=== PATIENT | female | born 1955 | race Caucasian/White ===

== ENCOUNTER 2020-04-06 08:18 | Outpatient (CLI) | payer OTHER, SELFPAY ==
--- NOTE | ~2020-04-06 | XR_ITS ---
EXAMINATION: XR chest 2V DATE: 04/06/2020 08:37 INDICATION: Cough. Shortness of breath. TECHNIQUE: Frontal and lateral views of the chest were obtained. COMPARISON: None. FINDINGS: The lungs are hyperexpanded with lucencies, consistent with emphysema. There is mild scarri ng at the lung apices. No pleural effusion or pneumothorax. The heart size is normal. IMPRESSION: 1. Emphysema. 2. Mild scarring at the lung apices. Reviewed, dictated and finalized at location B.
== END 2020-04-06 08:19 | disposition home or self-care (01) ==
PROVIDERS: PCP Family Medicine; Visit Provider Family Medicine
DX: R05 Cough (principal); F17.209 Nicotine dependence, unspecified, with unspecified nicotine-induced disorders; J43.9 Emphysema, unspecified; R91.8 Other nonspecific abnormal finding of lung field
CPT/HCPCS: 71046

== ENCOUNTER 2021-05-29 14:19 | Outpatient (CLI) | payer OTHER, SELFPAY ==
--- NOTE | ~2021-05-29 | MM_ITS ---
EXAMINATION: MM screening carla BI w jama HISTORY: Screening mammogram TECHNIQUE: Craniocaudal and mediolateral oblique 3-D tomosynthesis images were obtained and synthetic 2-D images were generated. CAD analysis was submitted and interpreted. COMPARISON: 07/03/2014, 05/20/2013 BREAST PARENCHYMAL COMPOSITION: There are scattered areas of fibroglandular density. FINDINGS: There has been interval decrease in size of the implant cavities with development of dystro phic calcifications. There is no evidence of suspicious mass, calcification, or architectural distort ion to suggest malignancy in either breast. There has been no suspicious interval change. IMPRESSION: 1. No mammographic evidence of malignancy. 2. Recommend routine screening mammography in one year. BI-RADS Category 2: Benign finding(s). Reviewed, dictated and finalized at location A.
== END 2021-05-29 14:20 | disposition home or self-care (01) ==
PROVIDERS: PCP Family Medicine; Visit Provider Family Medicine
DX: Z12.31 Encounter for screening mammogram for malignant neoplasm of breast (principal)
CPT/HCPCS: 77063; 77067

== ENCOUNTER 2021-05-31 09:26 | Outpatient (CLI) | payer OTHER, SELFPAY ==
--- NOTE | 2021-05-31 09:30 | EST_ITS ---
Patient Info Name: Betty Pelaez Age: 65 years : 1955 Gender: Female Ht: 64 in Wt: 128 lbs BSA: 1.62 m2 HR: 79 bpm BP: 172 / 96 mmHg Heart Rhythm: Sinus Rhythm Exam Date: 05/31/2021 9:44 AM Exam Location: [facility] Stress Patient Status: Outpatient Admit Date: 05/31/2021 Staff Ordering Physician: Pete Stallworth MD Attending Provider: Pete Stallworth MD Exercise Technologist: Anju Rodgers CT Exercise Physician: Ender Guerra DO Exam Type: CA stress test treadmill Study Info Indications R06.02 - Shortness of breath An exercise stress test was performed. Summary 1. 1. Negative Jaspreet exercise stress test for ischemic ST changes by ECG criteria. 2. 2. Poor functional capacity, achieving 4 METs of workload. 3. 3. Baseline hypertension with hypertensive response to exercise. 4. 4. Rapid HR response to exercise. 5. 5. Appropriate HR recovery at 1 minute post exercise. 6. 6. No imaging with stress testing. 7. 7. Patient informed of the above results. Protocol: Jaspreet Stress ECG Details Stage: REST Duration (min): 3 min : 34 sec Speed (mph): 0.0 Grade (%): 0 HR (bpm): 79 SBP (mmHg): 172 DBP (mmHg): 96 METS: --- Stage: REST Duration (min): 9 min : 14 sec Speed (mph): 0.0 Grade (%): 0 HR (bpm): 87 SBP (mmHg): 172 DBP (mmHg): 96 METS: --- Stage: STAGE 1 Duration (min): 1 min : 0 sec Speed (mph): 1.7 Grade (%): 10 HR (bpm): 117 SBP (mmHg): 172 DBP (mmHg): 96 METS: --- Stage: STAGE 1 Duration (min): 2 min : 0 sec Speed (mph): 1.7 Grade (%): 10 HR (bpm): 144 SBP (mmHg): 172 DBP (mmHg): 96 METS: --- Stage: STAGE 1 Duration (min): 3 min : 0 sec Speed (mph): 1.7 Grade (%): 10 HR (bpm): 149 SBP (mmHg): 229 DBP (mmHg): 117 METS: --- Stage: RECOVERY Duration (min): 0 min : 59 sec Speed (mph): 0.0 Grade (%): 0 HR (bpm): 117 SBP (mmHg): 229 DBP (mmHg): 117 METS: --- Stage: RECOVERY Duration (min): 1 min : 59 sec Speed (mph): 0.0 Grade (%): 0 HR (bpm): 107 SBP (mmHg): 229 DBP (mmHg): 117 METS: --- Stage: RECOVERY Duration (min): 2 min : 48 sec Speed (mph): 0.0 Grade (%): 0 HR (bpm): 88 SBP (mmHg): 210 DBP (mmHg): 95 METS: --- Rest HR: 87 bpm Peak HR: 152 bpm Rest Sys BP: 172 mmHg Peak Sys BP: 229 mmHg Max Pred HR: 157 bpm % Max Pred HR: 97 % Target HR: 133 bpm Max RPP: 34,808 bpm*mmHg Ordoñez Score: -5 Termination Reason: Reached target heart rate or workload Cardiac Symptoms: Shortness of breath Max ST Seg Deviation: -1.70 mm Total Time: 3 min : 0 sec Rest Cano BP: 96 mmHg Peak Cano BP: 117 mmHg Angina Score: None Total METS: 4.7 Resting ECG Sinus rhythm. Stress ECG No ST changes. Arrhythmias PVC's at peak exercise. No arrhythmias. Report Signatures
--- NOTE | 2021-06-03 13:29 | P.PCNPFT_ITS ---
PFT Procedure Performed PFT Procedure Performed Spirometry with Pre/Post Bronchodilator Plethysmography (Lung Vol) Diffusing Cap (DLCO) Flow Vol Loop PFT Interpretation Lung volumes were measured with the body plethysmography method. The elevated RV may indicate air trapping. The remaining lung volumes are remarkable. S pirometry showed diminished expiratory flow rates and a diminished FEV1 to FVC ratio of 50%, indicative of obstructive airway disease. Following administration of a bronchodilator, there was no significant increase in the expiratory flow rates. Lung diffusion capacity is moderately reduced at 64% predicted. The flow volume loop is consistent with obstructive airway disease. Impression: Moderate obstructive airway disease with no response to bronchodilator of this testing. Moderately reduced lung diffusion capacity.
== END 2021-05-31 09:27 | disposition home or self-care (01) ==
PROVIDERS: PCP Family Medicine; Visit Provider Family Medicine
DX: R07.89 Other chest pain (principal); J43.9 Emphysema, unspecified; R94.2 Abnormal results of pulmonary function studies
CPT/HCPCS: 93017; 94060; 94726; 94729

== ENCOUNTER 2021-07-29 10:52 | Outpatient (CLI) | payer OTHER, SELFPAY ==
--- NOTE | ~2021-07-29 | CT_ITS ---
EXAMINATION: CT lung screening DATE: 07/29/2021 11:32 INDICATION: Z87.891 - Personal history of nicotine dependence TECHNIQUE: Computed tomography (CT) of the chest was performed without intravenous contrast. Addition al 3D reconstructions utilizing coronal maximum intensity projection (MIP) were performed. Automated exposure control and iterative reconstruction technique were employed. The dose-length product was 56 .66 mGy-cm. COMPARISON: None FINDINGS: Mild emphysema. Mild posterior biapical pleural-parenchymal scarring. Additional small linear band of discoid atelectasis/scarring at the anterior right middle lobe. No suspicious pulmonary nodules, pne umonia, pulmonary edema or pleural effusion. Heart size is normal. Atherosclerotic coronary artery ca lcific lesions. No pericardial effusion. Thoracic aorta is normal in caliber. No pathologically enlar ged thoracic lymphadenopathy. Small seromas and bilateral breast implants apices with peripheral dyst rophic capsular calcification on the right. 1.5 cm high attenuation left renal proteinaceous/hemorrha gic cyst. Thoracic kyphosis, mild dextrocurvature and mild spondylosis. IMPRESSION: 1. Lung-RADS category 1: Negative. Continue annual screening with noncontrast low-dose chest CT in 12 months. Reviewed, dictated and finalized at location B. T POURER IMPRESSION: 1. Lung-RADS category 1: Negative. Continue annual screening with noncontrast l ow-dose chest CT in 12 months.
== END 2021-07-29 10:53 | disposition home or self-care (01) ==
LOC: ANHIMG 11:04
PROVIDERS: PCP Family Medicine; Visit Provider Nurse Practitioner Family
DX: Z87.891 Personal history of nicotine dependence (principal)
CPT/HCPCS: 71271

== ENCOUNTER → 2021-09-07 00:42 | Outpatient (CLI) | payer OTHER, SELFPAY ==
[2021-09-08 15:56] LABS: SARS-CoV-2 RNA PCR Negative
== END ==
PROVIDERS: PCP Family Medicine; Visit Provider Family Medicine
DX: J01.00 Acute maxillary sinusitis, unspecified (principal); Z20.822 Contact with and (suspected) exposure to COVID-19
CPT/HCPCS: C9803; U0003; U0005

== ENCOUNTER → 2022-04-30 15:07 | Outpatient (CLI) | payer OTHER, SELFPAY ==
--- NOTE | ~2022-04-30 | XR_ITS ---
XR hip LT min 2V DATE: 04/30/2022 15:26 INDICATION: Hip pain TECHNIQUE: AP and lateral views COMPARISON: None FINDINGS: The pubic symphysis and left sacroiliac joint are intact. No fracture, dislocation, avascular necrosis or bone destruction of the right hip. Right hip joint sp meaghan is well preserved. IMPRESSION: No significant abnormality Reviewed, dictated and finalized at location A. IMPRESSION: No significant abnormality
--- NOTE | ~2022-04-30 | XR_ITS ---
XR hip RT min 2V DATE: 04/30/2022 15:25 INDICATION: Right hip pain TECHNIQUE: AP and lateral views COMPARISON: None FINDINGS: No fracture or dislocation, avascular necrosis or bone destruction of the right hip. Right hip joint space is well preserved. The pubic symphysis and right sacroiliac joint are intact. IMPRESSION: Negative right hip Reviewed, dictated and finalized at location A. IMPRESSION: Negative right hip
--- NOTE | ~2022-04-30 | XR_ITS ---
XR lumbar spine min 4V DATE: 04/30/2022 15:26 INDICATION: Low back pain, right sciatica TECHNIQUE: AP, lateral, bilateral oblique views, coned lateral lumbosacral view COMPARISON: None FINDINGS: There is rotatory levoscoliosis of the lumbar spine. Diffuse osteopenia. There is suggestion of a transitional lumbosacral vertebra. No fracture or bone destruction, spondylolysis or spondylolisthesis is noted. Lumbar interspaces appear relatively preserved. The sacroiliac joints are intact. Extensive aortic and bilateral common iliac artery calcification; no evidence of abdominal aortic ane urysm IMPRESSION: Moderate rotatory levoscoliosis Osteopenia Suggestion of a transitional lumbosacral vertebra Reviewed, dictated and finalized at location A.
== END ==
PROVIDERS: PCP Family Medicine; Visit Provider Family Medicine
DX: G89.29 Other chronic pain (principal); M54.41 Lumbago with sciatica, right side; M54.42 Lumbago with sciatica, left side; M25.551 Pain in right hip; M25.552 Pain in left hip; M85.88 Other specified disorders of bone density and structure, other site
CPT/HCPCS: 72110; 73502

== ENCOUNTER 2022-05-16 13:56 | Outpatient (CLI) | payer OTHER, SELFPAY ==
--- NOTE | ~2022-05-16 | US_ITS ---
US art doppler w press LE BI INDICATION: Peripheral vascular disease TECHNIQUE: Segmental pressures and plethysmographic and Doppler waveforms of the brachial and lower e xtremity arteries were obtained. COMPARISON: No prior studies for comparison. . FINDINGS: Right and left brachial artery pressures of 139 mm Hg and 139 mm Hg, respectively, are concordant (no rmal difference <= 30 mmHg). The right ankle-brachial index (REBEKAH) is 1.09 (normal >= 0.9-1.0). The right great toe-brachial index (TBI) is 0.55 (normal >= 0.60). The left REBEKAH is 1.22. The left TBI is 0.29. IMPRESSION: 1. Diminished bilateral toe brachial indices, left greater than right, consistent with peripheral art erial disease. Reviewed, dictated and finalized at location A. IMPRESSION: 1. Diminished bilateral toe brachial indices, left greater than right, consiste nt with peripheral arterial disease.
== END 2022-05-16 13:57 | disposition home or self-care (01) ==
LOC: ANHIMG 13:57
PROVIDERS: PCP Family Medicine; Visit Provider Family Medicine
DX: I73.9 Peripheral vascular disease, unspecified (principal)
CPT/HCPCS: 93923

== ENCOUNTER 2022-06-13 14:26 | Emergency (ER) | payer OTHER, SELFPAY ==
--- NOTE | ~2022-06-13 | XR_ITS ---
EXAMINATION: XR finger 2nd RT min 2V INDICATION: Right second finger pain TECHNIQUE: Four views of the right second finger are obtained. COMPARISON: None available FINDINGS: There appears to be dorsal soft tissue laceration overlying the proximal phalanx of the sec ond finger. No acute fracture is identified. There appears to be an old fracture of the second distal phalanx. Mild osteoarthritis is noted in multiple interphalangeal joints. IMPRESSION: 1. Soft tissue laceration of the second finger without acute osseous abnormality. Reviewed, dictated and finalized at location B. IMPRESSION: 1. Soft tissue laceration of the second finger without acute osseous abnormalit y.
--- NOTE | 2022-06-13 14:33 | ED.UPPEXIN ---
HPI - Extremity Injury (Upper) General Chief Complaint: Extremity Injury, Upper Stated Complaint: INJURED FINGER Time Seen by Provider: 06/13/22 14:33 Source: patient Mode of arrival: ambulatory Limitations: no limitations History of Present Illness HPI narrative: Ms Robertson is a 66-year-old female patient presenting to clinic today with complaints of right-second finger pain/injury that occurred approximately 1 hour. She reports she was taking the dog out on the leash and the dog pulled and her finger smacked into the door. Related Data Home Medications Medication Instructions Recorded Confirmed vitamin B12 500 mcg-folic acid 400 1 tablet PO DAILY 06/28/19 06/13/22 mcg tablet adalimumab 40 mg/0.4 mL See Rx Instructions subcut .COMPLEX 07/07/19 06/13/22 subcutaneous syringe kit (Asmita(CF)) esomeprazole magnesium 20 mg 20 mg PO DAILY 04/05/20 06/13/22 capsule,delayed release (Nexium 24HR) ferrous sulfate 325 mg (65 mg 325 mg PO . twice weekly 04/30/22 06/13/22 iron) tablet fexofenadine-pseudoephedrine ER 1 tablet PO DAILY PRN allergy 04/30/22 06/13/22 180 mg-240 mg tablet,ext.release symptoms 24 hr (Liza-D 24 Hour) fluticasone fur. 100 mcg-umeclid 62.5 inh inhalation DIRECTED 06/13/22 06/13/22 62.5 mcg-vilant 25 mcg inhalat.powder (Trelegy Ellipta) peg-electrolyte solution 420 gram 420 ml DIRECTED 06/13/22 06/13/22 oral solution Allergies Allergy/AdvReac Type Severity Reaction Status Date / Time ciprofloxacin Allergy Unknown Joint pain Verified 06/13/22 14:36 Penicillins Allergy Unknown Rash Verified 06/13/22 14:36 Review of Systems Review of Systems: Pertinent positives per HPI. Patient denies any fever, chills, rash, headache, visual changes, dizziness, cough, runny nose, sore throat, shortness of breath, chest pain, palpitations, nausea, vomiting, diarrhea, constipation, abdominal pain, or any urinary issues. PMFSH Past Medical History Medical History Acute bronchitis Acute non-recurrent maxillary sinusitis Atypical chest pain Exercise stress test on 05/31/2021 negative for ischemia with poor exercise tolerance BMI 21.0-21.9, adult BMI 23.0-23.9, adult Breast cancer screening by mammogram normal mammogram 05/29/2021 Chronic hip pain, bilateral X-rays of the hips on 04/30/2022 were unremarkable. Chronic low back pain with bilateral sciatica x-ray of the lumbar spine on 04/30/2022 reveals levoscoliosis but otherwise unremarkable. Colon cancer screening (05/08/22) Cologuard screening on 05/08/2022 was positive. The patient needs colonoscopy 05/14/2022. Cough present for greater than 3 weeks Emphysema/COPD moderate COPD with no improvement with bronchodilator on PFT on 05/31/2021 Encounter for screening for other viral diseases Encounter for screening for other viral diseases Encounter for wellness examination in adult Exposure to COVID-19 virus Grieving daughter July, Iron deficiency anemia, unspecified level low at 22 on 11/09/2015. Iron normal at 89 with 24% saturation with ferritin low at 12 on 10/25/2021 Kyphosis Left axillary artery thrombus Medial epicondylitis, left elbow Mixed hyperlipidemia total cholesterol 243, HDL 59, triglycerides 74, LDL 154 on 10/25/2021 Peripheral vascular disease (~05/11/22) extensive calcification of the aorta and iliac arteries on x-ray of the lumbar spine and hips 04/30/2022. Arterial Doppler study of the lower extremities revealed decreased TBI bilaterally worse on the left with value of 0.55 on the right and 0.29 on the left. Positive colorectal cancer screening using Cologuard test Rash Severe itching Tobacco use disorder, continuous quit smoking 03/24/2020 Urticaria (~01/2022) Family History Family History Mother Patient's mother is , Onset Age: 76 Father Dec
[2022-06-13 14:44] VITALS: BP 166/76; PULSE 89; RESP 16; TEMP 37.1; O2SAT 98
== END 2022-06-13 15:00 | disposition home or self-care (01) ==
PROVIDERS: Emergency Provider Nurse Practitioner Family; PCP Family Medicine
DX: S61.210A Laceration without foreign body of right index finger without damage to nail, initial encounter (principal); S63.610A Unspecified sprain of right index finger, initial encounter; S60.021A Contusion of right index finger without damage to nail, initial encounter; W22.8XXA Striking against or struck by other objects, initial encounter; Z87.891 Personal history of nicotine dependence; J44.9 Chronic obstructive pulmonary disease, unspecified; D64.9 Anemia, unspecified; E78.2 Mixed hyperlipidemia; I73.9 Peripheral vascular disease, unspecified
CPT/HCPCS: 29130; 73140; 99213; G0463

== ENCOUNTER 2022-06-26 01:01 | Day surgery (SDC) | payer OTHER, SELFPAY ==
[2022-06-18 15:00] VITALS: BMI 22.2
[2022-06-26 07:55] VITALS: BP 144/63; PULSE 92; RESP 16; TEMP 36.3; O2SAT 99
[2022-06-26] MEDS: LACTATED RINGERS 1,000 ML 150 ML IV CONT (08:02)
--- NOTE | 2022-06-26 08:05 | PM.HPGS ---
History of Present Illness History of Present Illness Consent: Risks, benefits, and alternatives have been discussed and questions answered. Patient agrees to proceed with procedure. Chief complaint: positive cologuard Narrative: Betty Robertson is a 66 year old female presents for colonoscopy. Patient recently found to have positive screening Cologuard test. Patient reports that her current weight appetite and bowel movements are normal. Patient denies abdominal pain. She has had no bleeding. Family history noncontributory. Previous colonoscopy 10 years ago was unremarkable. Review of Systems Review of Systems: Review of systems noncontributory. [facility] Past Medical History Medical History Acute bronchitis Acute non-recurrent maxillary sinusitis Atypical chest pain Exercise stress test on 05/31/2021 negative for ischemia with poor exercise tolerance BMI 21.0-21.9, adult BMI 23.0-23.9, adult Breast cancer screening by mammogram normal mammogram 05/29/2021 Chronic hip pain, bilateral X-rays of the hips on 04/30/2022 were unremarkable. Chronic low back pain with bilateral sciatica x-ray of the lumbar spine on 04/30/2022 reveals levoscoliosis but otherwise unremarkable. Colon cancer screening (05/08/22) Cologuard screening on 05/08/2022 was positive. The patient needs colonoscopy 05/14/2022. Cough present for greater than 3 weeks Emphysema/COPD moderate COPD with no improvement with bronchodilator on PFT on 05/31/2021 Encounter for screening for other viral diseases Encounter for screening for other viral diseases Encounter for wellness examination in adult Exposure to COVID-19 virus Grieving daughter July, Iron deficiency anemia, unspecified level low at 22 on 11/09/2015. Iron normal at 89 with 24% saturation with ferritin low at 12 on 10/25/2021 Kyphosis Left axillary artery thrombus Medial epicondylitis, left elbow Mixed hyperlipidemia total cholesterol 243, HDL 59, triglycerides 74, LDL 154 on 10/25/2021 Peripheral vascular disease (~05/11/22) extensive calcification of the aorta and iliac arteries on x-ray of the lumbar spine and hips 04/30/2022. Arterial Doppler study of the lower extremities revealed decreased TBI bilaterally worse on the left with value of 0.55 on the right and 0.29 on the left. Positive colorectal cancer screening using Cologuard test Rash Severe itching Tobacco use disorder, continuous quit smoking 03/24/2020 Urticaria (~01/2022) Family History Family History Mother Patient's mother is , Onset Age: 76 Father Patient's father is , Onset Age: 71 Grandparent Cerebrovascular accident, Onset Age: 74 Social History Social History Smoking packs per day: 1 Smoking cigarettes per day: 20.0 Years smoked: 45 Smoking pack-years: 45.00 Smoking status: Former smoker Tobacco type: cigarettes Smoking end date: 05/24/20 Alcohol intake: current Drinks per week: 1 Substance use type: does not use Living arrangements: with family Spiritual care concerns: No Meds Home Medications and Allergies Home Medications Medication Instructions Recorded Confirmed Type vitamin B12 500 mcg-folic acid 400 1 tablet PO DAILY 06/28/19 06/26/22 History mcg tablet adalimumab 40 mg/0.4 mL See Rx Instructions subcut .COMPLEX 07/07/19 06/26/22 History subcutaneous syringe kit (Humira(CF)) albuterol sulfate 90 mcg/actuation 2 puff inhalation Q4H PRN 04/05/20 06/26/22 Rx aerosol inhaler (ProAir HFA) shortness of breath or wheezing #18 grams esomeprazole magnesium 20 mg 20 mg PO DAILY 04/05/20 06/26/22 History capsule,delayed release (Nexium 24HR) ibuprofen 800 mg tablet 800 mg PO TID PRN pain #90 tabs 11/22
[2022-06-26 09:48] VITALS: BP 114/66; PULSE 86; RESP 20; O2SAT 98
[2022-06-26 09:58] VITALS: BP 120/74; PULSE 84; RESP 22; O2SAT 100
[2022-06-26 10:08] VITALS: BP 135/86; PULSE 77; RESP 18; O2SAT 100
== END 2022-06-26 10:14 | disposition home or self-care (01) ==
PROVIDERS: PCP Family Medicine; Visit Provider Internal Medicine Gastroenterology
PROC: 0DJD8ZZ Inspection of Lower Intestinal Tract, Via Natural or Artificial Opening Endoscopic (ICD-10-PCS; CPT 45378; principal; 2022-06-26 09:15)
DX: R19.5 Other fecal abnormalities (principal); E78.5 Hyperlipidemia, unspecified; Z87.891 Personal history of nicotine dependence
CPT/HCPCS: 45378; J2704; J7120

== ENCOUNTER 2022-07-21 16:13 | Emergency (ER) | payer OTHER, SELFPAY ==
[2022-07-21 16:24] VITALS: BP 161/66; PULSE 90; RESP 21; TEMP 35.8; O2SAT 99
--- NOTE | 2022-07-21 16:37 | ED.GENADULT ---
HPI - General Adult General Chief complaint: Extremity Injury, Lower Stated complaint: FALL/GROIN PAIN Time Seen by Provider: 07/21/22 16:25 Source: patient and RN notes reviewed History of Present Illness HPI narrative: Patient is a 66-year-old female who presents to urgent care with complaints of left groin pain. Patient states that she was walking her dog yesterday and rain boots and he tugged going after a squirrel causing her leg to slide out from underneath her. Patient states that she works at [employer] and has been on her feet all day and is now having increased pain. Patient states that she has been taking ibuprofen. No other acute complaints or injuries from the fall. No acute distress noted. Patient aware of the plan of care. Some parts of this dictation were generated by voice recognition software and may contain typographical and/or grammatical inaccuracies. Related Data Home Medications Medication Instructions Recorded Confirmed vitamin B12 500 mcg-folic acid 400 1 tablet PO DAILY 06/28/19 07/21/22 mcg tablet adalimumab 40 mg/0.4 mL See Rx Instructions subcut .COMPLEX 07/07/19 07/21/22 subcutaneous syringe kit (Rollyira(CF)) esomeprazole magnesium 20 mg 20 mg PO DAILY 04/05/20 07/21/22 capsule,delayed release (Nexium 24HR) ferrous sulfate 325 mg (65 mg 325 mg PO . twice weekly 04/30/22 07/21/22 iron) tablet fexofenadine-pseudoephedrine ER 1 tablet PO DAILY PRN allergy 04/30/22 07/21/22 180 mg-240 mg tablet,ext.release symptoms 24 hr (Liza-D 24 Hour) fluticasone fur. 100 mcg-umeclid 62.5 inh inhalation DIRECTED 06/13/22 07/21/22 62.5 mcg-vilant 25 mcg inhalat.powder (Trelegy Ellipta) peg-electrolyte solution 420 gram 420 ml DIRECTED 06/13/22 07/21/22 oral solution Allergies Allergy/AdvReac Type Severity Reaction Status Date / Time ciprofloxacin Allergy Unknown Joint pain Verified 07/21/22 16:18 Penicillins Allergy Unknown Rash Verified 07/21/22 16:18 Review of Systems Review of Systems: CONSTITUTIONAL: Denies fever, chills, or sweats. EYES: Denies visual changes, redness, or discharge. ENT: Denies rhinorrhea, congestion, sore throat, or otalgia. CARDIOVASCULAR: Denies chest pain, palpitations, or edema. RESPIRATORY: Denies cough or dyspnea. GASTROINTESTINAL: Denies abdominal pain, nausea, vomiting, or diarrhea. GENITOURINARY: Denies dysuria or hematuria. SKIN: Denies rash or itching. MUSCULOSKELETAL: Reports of left groin pain NEUROLOGIC: Denies headache, numbness, or weakness. All other systems reviewed are negative, except as documented in HPI. [facility] Past Medical History Medical History (Updated 07/21/22 @ 16:48 by COREY Mccray) Acute bronchitis Acute non-recurrent maxillary sinusitis Atypical chest pain Exercise stress test on 05/31/2021 negative for ischemia with poor exercise tolerance BMI 21.0-21.9, adult BMI 23.0-23.9, adult Breast cancer screening by mammogram normal mammogram 05/29/2021 Chronic hip pain, bilateral X-rays of the hips on 04/30/2022 were unremarkable. Chronic low back pain with bilateral sciatica x-ray of the lumbar spine on 04/30/2022 reveals levoscoliosis but otherwise unremarkable. Colon cancer screening (05/08/22) Cologuard screening on 05/08/2022 was positive. The patient needs colonoscopy 05/14/2022. colonoscopy on 06/26/2022 was negative. Cough present for greater than 3 weeks Emphysema/COPD moderate COPD with no improvement with bronchodilator on PFT on 05/31/2021 Encounter for screening for other viral diseases Encounter for screening for other viral diseases Encounter for wellness examination in adult Exposure to COVID-19 virus Grieving daughter July, Iron deficiency anemia, unspecified level low at 22 on 11/09/2015. Iron normal at 89 with 24% saturation with ferritin low at 12 on 10/25/2021 Kyphosis Left axillary artery thrombus Medial epicondylitis, left elbow Mixed hyperlipidemia to
== END 2022-07-21 16:54 | disposition home or self-care (01) ==
PROVIDERS: Emergency Provider Nurse Practitioner Family; PCP Family Medicine
DX: S76.212A Strain of adductor muscle, fascia and tendon of left thigh, initial encounter (principal); F17.210 Nicotine dependence, cigarettes, uncomplicated; W18.31XA Fall on same level due to stepping on an object, initial encounter
CPT/HCPCS: 99213; G0463

== ENCOUNTER 2022-07-31 07:59 | Outpatient (CLI) | payer OTHER, SELFPAY ==
--- NOTE | ~2022-07-31 | MM_ITS ---
EXAMINATION: MM screening [facility] BI w jama HISTORY: Screening mammogram TECHNIQUE: Craniocaudal and mediolateral oblique 3-D tomosynthesis images were obtained and synthetic 2-D images were generated. CAD analysis was submitted and interpreted. COMPARISON: 05/29/2021, 07/03/1940 BREAST PARENCHYMAL COMPOSITION: There are scattered areas of fibroglandular density. FINDINGS: Previously described implant cavities have slightly decreased in size. No suspicious mass, calcification, or architectural distortion are identified in either breast to suggest malignancy. The re has been no suspicious interval change. IMPRESSION: 1. No mammographic evidence of malignancy. 2. Recommend routine screening mammography in one year. BI-RADS Category 2: Benign finding(s). Reviewed, dictated and finalized at location A. R FABRICATOR OPERATOR
== END 2022-07-31 08:00 | disposition home or self-care (01) ==
LOC: ANHIMG 08:00
PROVIDERS: PCP Family Medicine; Visit Provider Family Medicine
DX: Z12.31 Encounter for screening mammogram for malignant neoplasm of breast (principal)
CPT/HCPCS: 77063; 77067

== ENCOUNTER → 2022-08-05 14:23 | Outpatient (CLI) | payer OTHER, SELFPAY ==
--- NOTE | ~2022-08-05 | XR_ITS ---
AP view of the pelvis and AP and lateral views of the left hip Clinical history: Pain Findings: No acute fracture or dislocation is seen. Osseous alignment is anatomic. Bilateral hip and SI joint spaces are preserved. Soft tissues are unremarkable. Impression: No significant abnormality is seen. Reviewed, dictated and finalized at location [] PLANT OPERATOR Impression: No significant abnormality is seen.
== END ==
PROVIDERS: PCP Nurse Practitioner Family; Visit Provider Nurse Practitioner Family
DX: R10.32 Left lower quadrant pain (principal); M25.552 Pain in left hip
CPT/HCPCS: 73502

== ENCOUNTER 2022-08-07 15:14 | Outpatient (CLI) | payer OTHER, SELFPAY ==
--- NOTE | ~2022-08-07 | CT_ITS ---
EXAMINATION: CT lung screening DATE: 08/07/2022 15:36 INDICATION: Personal history of nicotine dependence, prior smoker with 40 pack year history TECHNIQUE: Computed tomography (CT) of the chest was performed without intravenous contrast. The dose -length product (DLP) was 57.44 mGy-cm. Automated exposure control and iterative reconstruction techn Senchaue were employed. COMPARISON: 07/29/2021 FINDINGS: There is mild emphysema. There is a 2 mm nodule of the medial right lower lobe on image 68. There is scarring of the lung apices. Residual implant cavities are noted in the breasts. No patholo gically enlarged thoracic lymph nodes are identified. The heart size is normal. Calcified coronary ar melvin atherosclerosis is noted. The lungs are free of acute opacities. No pleural effusion or pneumoth orax. There is mild thoracic spondylosis with exaggerated kyphosis. There is a 1.5 x 2.1 cm soft tiss ue attenuation lesion of the left kidney. IMPRESSION: 1. Lung-RADS category 2S: Benign appearance or behavior. Continue annual screening with noncontrast l ow-dose chest CT in 12 months. 2. Indeterminate left kidney mass. Further evaluation with MRI or CT without and with contrast is rec ommended. Reviewed, dictated and finalized at location A. NG MACHINE OPERATOR IMPRESSION: 1. Lung-RADS category 2S: Benign appearance or behavior. Continue annual screen ing with noncontrast low-dose chest CT in 12 months. 2. Indeterminate left kidney mass. Further evaluation with MRI or CT without an d with contrast is recommended.
== END 2022-08-07 15:15 | disposition home or self-care (01) ==
PROVIDERS: PCP Family Medicine; Visit Provider Internal Medicine Pulmonary Disease
DX: Z12.2 Encounter for screening for malignant neoplasm of respiratory organs (principal); Z87.891 Personal history of nicotine dependence
CPT/HCPCS: 71271

== ENCOUNTER → 2022-09-26 07:42 | Outpatient (CLI) | payer OTHER, MEDICARE, SELFPAY ==
--- NOTE | ~2022-09-26 | MR_ITS ---
EXAMINATION: MR renal wo/w con DATE: 09/26/2022 08:39 INDICATION: Left renal mass on CT. TECHNIQUE: Magnetic resonance imaging (MRI) of the abdomen was performed without and with 12 mL Multi marivel intravenous contrast. Sequences included coronal T2-weighted SS-FSE, coronal and axial FS 2D-F IESTA, axial STIR FSE, axial T2-weighted SS-FSE, axial T2-weighted FS SS-FSE, axial diffusion-weighte d SE, axial dual-echo T1-weighted FSPGR, and axial and coronal T1-weighted LAVA. Postcontrast axial T 1-weighted LAVA images were obtained in a time course. Postcontrast coronal T1-weighted LAVA images w ere obtained. COMPARISON: CT dated 08/07/2022 FINDINGS: Fluid within the lateral breast implant cavities. Arch size is normal. Mild discoid atelectasis at th e posterolateral right lung base. No pericardial or pleural effusion. Liver, spleen, gallbladder, gavin creas and bilateral adrenal glands are normal. Bilateral renal cysts. This include a couple T1 hyperi ntense, T2 hypointense nonenhancing proteinaceous/hemorrhagic cysts, the larger measuring 2.0 cm and the smaller measuring 9 mm which correspond to the high attenuation lesions of concern in the left ki dney. No bowel obstruction. The bladder, uterus and adnexa . Unremarkable on the coronal images. No p athologically enlarged abdominal or pelvic lymphadenopathy. Bones appear unremarkable with normal mar row signal throughout. IMPRESSION: 1. Bilateral renal cysts including a couple complex proteinaceous/hemorrhagic cyst at the left kidney which correspond to the prior attenuation lesions of concern on prior CT. 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 Bilateral renal cysts including a couple complex proteinaceous/hemorrhagic c yst at the left kidney which correspond to the prior attenuation lesions of con cern on prior CT.
== END ==
PROVIDERS: PCP Family Medicine; Visit Provider Family Medicine
DX: N28.1 Cyst of kidney, acquired (principal); N28.89 Other specified disorders of kidney and ureter
CPT/HCPCS: 74183; A9577

== ENCOUNTER 2022-11-01 19:36 | Inpatient (IN) | payer OTHER, MEDICARE, SELFPAY ==
[2022-11-01] VITALS (23 sets, daily range): BP systolic 84–169; BP diastolic 48–92; PULSE 59–105; RESP 12–30; TEMP 36.1–36.5; O2SAT 90–97; BMI 23.1
--- NOTE | ~2022-11-01 | XR_ITS ---
Clinical Indication: Chest pain, shortness of breath AP and lateral views of the chest: Comparison: 04/06/2020 Findings: The lungs are clear, without evidence of focal consolidation or pleural effusion. COPD sudarshan supriya noted. Cardiomediastinal silhouette is within normal limits. Stable relative kyphosis of the thor acic spine. Impression: COPD. Clear lungs. Stable kyphosis. 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 Clear lungs. Stable kyphosis.
--- NOTE | 2022-11-01 19:49 | ECG_ITS ---
Measurements Intervals [place] Rate: 82 P: 79 OR: 128 QRS: 68 QRSD: 98 T: 66 QT: 371 QTc: 436 Interpretive Statements SINUS RHYTHM BASELINE ARTIFACT- I, III, AVR, AVL BORDERLINE ST ABNORMALITY- ANTEROLAT/INF LEADS BORDERLINE ECG NO PREVIOUS ECG AVAILABLE FOR COMPARISON Electronically Signed On 11-02-2022 7:54:04 CDT by Ender Guerra D.O.
[2022-11-01 20:33] LABS: Basophils Absolute Auto 0.1 K/mm3 (0.0-0.1); Eosinophils Absolute Auto 0.3 K/mm3 (0-0.3); Eosinophils Percent Auto 3.1 % (0-4.4); Hematocrit 39.4 % (37.0-47.0); Hemoglobin 12.9 g/dL (12.0-15.0); Immature Granulocyte Absolute 0.03 K/mm3 (0.00-0.031); Immature Granulocyte Percent A 0.4 % (0-0.5); Lymphocytes Absolute Auto 1.86 K/mm3 (0.9-3.2); Lymphocytes Percent Auto 22.2 % (18.3-44.2); Mean Corpuscular HGB Conc 32.7 g/dl (32-36); Mean Corpuscular Hemoglobin 28.3 pg (26-34); Mean Corpuscular Volume 86.4 fl (80-100); Mean Platelet Volume 8.5 fl (7.4-10.4); Monocytes Absolute Auto 0.7 K/mm3 (0.1-0.6); Monocytes Percent Auto 8.9 % (2.6-8.5); Neutrophils Absolute Auto 5.4 K/mm3 (1.3-6.7); Neutrophils Percent Auto 64.4 % (45.5-73.1); Platelet Count Result 294 k/mm3 (150-375); Red Blood Count 4.56 M/mm3 (4.2-5.4); Red Cell Distribution Width 12.9 % (11.5-14.5); White Blood Count 8.4 K/mm3 (4.5-10.0)
[2022-11-01] MEDS: MORPHINE SULFATE (*CRX) 4 MG/ML INJ IV PUSH (20:34)
[2022-11-01] MEDS: NITROGLYCERIN SL 0.4 MG TABLET SUBLINGUAL (20:34)
[2022-11-01] MEDS: ASPIRIN 81 MG CHEWABLE TABLET 324 MG PO (20:34)
[2022-11-01 20:43] LABS: Alanine Aminotransferase 18 U/L (6-35); Albumin Level 4.5 g/dL (3.5-5.1); Alkaline Phosphatase 115 U/L (38-126); Anion Gap 6 mmol/L (8-16); Aspartate Amino Transferase 28 U/L (14-36); Bilirubin,Total 0.3 mg/dL (0.2-1.3); Blood Urea Nitrogen 19 mg/dL (7-17); Calcium 9.1 mg/dL (8.4-10.2); Carbon Dioxide 29 mmol/L (22-30); Chloride 101 mmol/L (98-107); Estimated CRCL calculation 53 ml/min; Estimated Glomerular Filt Rate > 60; Glucose 121 mg/dL (65-110); Lipase 144 U/L (23-300); Potassium 4.1 mmol/L (3.4-5.0); Sodium 136 mmol/L (137-145)
[2022-11-01 20:45] LABS: Prothrombin Time 12.3 Seconds (11.1-14.7)
[2022-11-01 20:46] LABS: Partial Thromboplastin Time 37.6 SECONDS (22.3-36.8)
[2022-11-01 21:00] LABS: Troponin I 0.229 ng/mL (0.000-0.034)
--- NOTE | 2022-11-01 21:09 | ED.GENADULT ---
HPI - General Adult General Chief complaint: Chest Pain Stated complaint: chest pain/dyspnea Time Seen by Provider: 11/01/22 20:07 History of Present Illness HPI narrative: Patient 67-year-old female who presents the emergency department with chief complaint of chest pain. Patient reports that she was spending time with her grandchildren and noticed that she started having some tightness in her chest the patient reports it feels like a pulled feeling in the central portion of her chest without radiation. Patient reports she has felt a little short of breath denies diaphoresis denies radiation to her neck or arm. Patient reports no prior cardiac history but does report she has history of hypertension and COPD Related Data Home Medications Medication Instructions Recorded Confirmed vitamin B12 500 mcg-folic acid 400 1 tablet PO DAILY 06/28/19 10/28/22 mcg tablet adalimumab 40 mg/0.4 mL See Rx Instructions subcut .COMPLEX 07/07/19 10/28/22 subcutaneous syringe kit (Asmita(CF)) esomeprazole magnesium 20 mg 20 mg PO DAILY 04/05/20 10/28/22 capsule,delayed release (Nexium 24HR) ferrous sulfate 325 mg (65 mg 325 mg PO . twice weekly 04/30/22 10/28/22 iron) tablet fexofenadine-pseudoephedrine ER 1 tablet PO DAILY PRN allergy 04/30/22 10/28/22 180 mg-240 mg tablet,ext.release symptoms 24 hr (Liza-D 24 Hour) peg-electrolyte solution 420 gram 420 ml DIRECTED 06/13/22 10/28/22 oral solution Allergies Allergy/AdvReac Type Severity Reaction Status Date / Time ciprofloxacin Allergy Unknown Joint pain Verified 11/01/22 20:22 Penicillins Allergy Unknown Rash Verified 11/01/22 20:22 Review of Systems Review of Systems: A 10 system review of systems was completed on the patient and is negative except for what is stated in the HPI. Nursing and ancillary documentation was reviewed. [facility] Past Medical History Medical History Acute bronchitis Acute non-recurrent maxillary sinusitis Atypical chest pain Exercise stress test on 05/31/2021 negative for ischemia with poor exercise tolerance BMI 21.0-21.9, adult BMI 23.0-23.9, adult Breast cancer screening by mammogram normal mammogram 05/29/2021. Normal mammogram 07/31/2022. Chronic hip pain, bilateral X-rays of the hips on 04/30/2022 were unremarkable. Chronic low back pain with bilateral sciatica x-ray of the lumbar spine on 04/30/2022 reveals levoscoliosis but otherwise unremarkable. Colon cancer screening (05/08/22) Cologuard screening on 05/08/2022 was positive. The patient needs colonoscopy 05/14/2022. colonoscopy on 06/26/2022 was negative. Cough present for greater than 3 weeks Emphysema/COPD moderate COPD with no improvement with bronchodilator on PFT on 05/31/2021 Encounter for screening for other viral diseases Encounter for screening for other viral diseases Encounter for wellness examination in adult Exposure to COVID-19 virus Grieving daughter July, Iron deficiency anemia, unspecified level low at 22 on 11/09/2015. Iron normal at 89 with 24% saturation with ferritin low at 12 on 10/25/2021. Hemoglobin 12.7, iron 118, 31% saturation, ferritin 13 on 10/02/2022. Kyphosis Left axillary artery thrombus Left groin pain Left kidney mass MRI of the kidneys on 09/25/2022 revealed bilateral renal cyst with 2 complex, proteinaceous /hemorrhagic cyst in left kidney, 2 cm and 9 mm , nonenhancing. No further evaluation needed. Medial epicondylitis, left elbow Mixed hyperlipidemia total cholesterol 243, HDL 59, triglycerides 74, LDL 154 on 10/25/2021. Cholesterol 242, triglycerides 93, HDL 69, LDL 153 on 10/02/2022. Peripheral vascular disease (~05/11/22) extensive calcification of the aorta and iliac arteries on x-ray of the lumbar spine and hips 04/30/2022. Arterial Doppler study of the lower extremities revealed decreased TBI bilaterally worse on the left with value of
[2022-11-01] MEDS: HEPARIN SOD/D5W 100 UNITS/ML 25,000 UNITS/250 ML BAG 7 UNITS IV CONT (21:28)
[2022-11-01] MEDS: HEPARIN SODIUM 5,000 UNITS/ML VIAL 3500 UNITS IV PUSH (21:28)
--- NOTE | 2022-11-01 21:30 | PM.IMHP ---
H&P: HPI History of Present Illness Date/Time: 11/01/22 21:30 Chief Complaint: Chest pain Narrative: This is a 67-year-old female with past medical history significant for COPD/emphysema, 45 pack year smoking history. Patient comes in due to chest pain localized to the retrosternal area nonradiating compressive as someone sitting on her chest raises the 8/10 in intensity felt lightheaded, denies any palpitations, used her med or does inhaler thinking that could be related to her COPD however there was no relieve pain persisted and patient decided to come to the emergency room for further evaluation, patient denies any chest pain with exertion, no leg swelling, no PND, no orthopnea, has been in her usual state of health, no fevers, rigors, chills, nausea, vomiting, abdominal pain. Preliminary workup was significant for troponin to be elevated. A chest x-ray was clear. Patient is been admitted for further evaluation management and treatment. Review of Systems Review of Systems: Chest pain localized to the retrosternal like someone sitting on her chest 8/10 in intensity lightheaded Constitutional: Constitutional: Denies chills, Denies fatigue, Denies fever(s), Denies lethargy, Denies malaise, Denies night sweats, Denies poor appetite and Denies weakness Eyes: Eyes: Denies change in vision ENT: Denies dysphagia and Denies odynophagia Cardiovascular: Cardiovascular: Reports chest pain, Denies syncope, Denies irregular heart rhythm, Denies leg edema, Reports lightheadedness, Denies radiating jaw, neck or arm pain and Denies palpitations Respiratory: Respiratory: Reports chest congestion, Denies cough, Denies excessive phlegm production, Denies pain on inspiration and Denies dyspnea Gastrointestinal: Gastrointestinal: Denies abdominal pain, Denies dyspepsia, Denies heartburn, Denies nausea and Denies vomiting Genitourinary: Genitourinary: Denies dysuria Musculoskeletal: Musculoskeletal: Denies back pain, Denies myalgias, Denies joint swelling and Denies muscle weakness Integumentary/Breasts: Skin/Breast: Denies rash Neurologic: Denies focal weakness and Denies Sensory deficit (Neuro) Psychiatric: Psychiatric: Reports no additional psychiatric complaints and Reports as per HPI Endocrine: Endocrine: Denies cold intolerance, Denies flushing, Denies heat intolerance, Denies polyphagia, Denies polydipsia and Denies palpitations Hematologic/Lymphatic: Hematologic/Lymphatic: Reports no additional hematologic/lymphatic complaints and Reports as per HPI Allergic/Immunologic: Allergic/Immunologic: Reports no additional allergic/immunologic complaints and Reports as per HPI [facility] Past Medical History Medical History Acute bronchitis Acute non-recurrent maxillary sinusitis Atypical chest pain Exercise stress test on 05/31/2021 negative for ischemia with poor exercise tolerance BMI 21.0-21.9, adult BMI 23.0-23.9, adult Breast cancer screening by mammogram normal mammogram 05/29/2021. Normal mammogram 07/31/2022. Chronic hip pain, bilateral X-rays of the hips on 04/30/2022 were unremarkable. Chronic low back pain with bilateral sciatica x-ray of the lumbar spine on 04/30/2022 reveals levoscoliosis but otherwise unremarkable. Colon cancer screening (05/08/22) Cologuard screening on 05/08/2022 was positive. The patient needs colonoscopy 05/14/2022. colonoscopy on 06/26/2022 was negative. Cough present for greater than 3 weeks Emphysema/COPD moderate COPD with no improvement with bronchodilator on PFT on 05/31/2021 Encounter for screening for other viral diseases Encounter for screening for other viral diseases Encounter for wellness examination in adult Exposure to COVID-19 virus Grieving daughter July, Iron deficiency anemia, unspecified level low at 22 on 11/09/2015. Iron normal at 89 with 24% saturation with ferritin low at 12 on 10/25/2021. Hemoglobin 12.
[2022-11-01] MEDS: NITROGLYCERIN OINTMENT 1 INCH DOSE TRANSDERM (22:31)
--- NOTE | 2022-11-01 23:25 | ADMGEN ---
This patient, Betty Robertson, was admitted to IMU Room 210-01. Patient/family oriented to hospital policies and general routines including ID bracelet, bed and alarms, visiting hours, pain management, procedures, bathroom and other care routines, personal items, smoking policy, room service/diet, and visiting hours. Information on how to activate the Rapid Response Team has been discussed. Patient/Family are encouraged to report perceived risks to care and to ask questions if they do not understand what they are told or what they should do.
--- NOTE | 2022-11-01 23:31 | ADMGEN ---
This patient, Betty Robertson, was admitted to IMU Room 210-01 on 11/01/22 at 2320. Patient/family oriented to hospital policies and general routines including ID bracelet, bed and alarms, visiting hours, pain management, procedures, bathroom and other care routines, personal items, smoking policy, room service/diet, and visiting hours. Information on how to activate the Rapid Response Team has been discussed. Patient/Family are encouraged to report perceived risks to care and to ask questions if they do not understand what they are told or what they should do.
[2022-11-02] VITALS (17 sets, daily range): BP systolic 110–135; BP diastolic 60–77; PULSE 71–106; RESP 14–20; TEMP 35.9–36.8; O2SAT 94–100
--- NOTE | 2022-11-02 00:19 | PC.NURSE ---
Daylight Savings Time For Daylight Savings Time Ending in the Fall - Clocks are moved back. For Daylight Savings Time Beginning in the Spring - Clocks are moved ahead. For [facility], the time of change occurs at 0200 hrs. Time is taken from the ware server. This entry on the patient's chart recognizes the change in time reflected during documentation. Example: 2 entries for vital signs may be charted for 0200 hrs.
[2022-11-02] MEDS: AMITRIPTYLINE HCL 10 MG TABLET 20 MG PO ×2 (01:31→20:14)
[2022-11-02] MEDS: ZOLPIDEM TARTRATE (*CRX) 5 MG TABLET 10 MG PO ×2 (01:31→23:28)
[2022-11-02 04:15] LABS: Basophils Absolute Auto 0.1 K/mm3 (0.0-0.1); Basophils Percent Auto 0.7 % (0.2-1.2); Eosinophils Percent Auto 0.5 % (0-4.4); Hematocrit 33.5 % (37.0-47.0); Hemoglobin 11.1 g/dL (12.0-15.0); Immature Granulocyte Absolute 0.03 K/mm3 (0.00-0.031); Immature Granulocyte Percent A 0.3 % (0-0.5); Lymphocytes Absolute Auto 1.57 K/mm3 (0.9-3.2); Mean Corpuscular HGB Conc 33.1 g/dl (32-36); Mean Corpuscular Hemoglobin 27.8 pg (26-34); Mean Corpuscular Volume 83.8 fl (80-100); Mean Platelet Volume 9.1 fl (7.4-10.4); Monocytes Absolute Auto 0.5 K/mm3 (0.1-0.6); Neutrophils Absolute Auto 6.5 K/mm3 (1.3-6.7); Neutrophils Percent Auto 74.5 % (45.5-73.1); Platelet Count Result 296 k/mm3 (150-375); Red Cell Distribution Width 12.8 % (11.5-14.5); White Blood Count 8.7 K/mm3 (4.5-10.0)
[2022-11-02 04:30] LABS: Partial Thromboplastin Time 84.3 SECONDS (22.3-36.8)
[2022-11-02] MEDS: NITROGLYCERIN OINTMENT 1 INCH DOSE TRANSDERM ×4 (06:07→23:29)
[2022-11-02] MEDS: UMECLIDINIUM/VILANTEROL 62.5-25 MCG ELLIPTA 1 PUFF INHALATION (08:43)
[2022-11-02] MEDS: ASPIRIN 81 MG CHEWABLE TABLET PO (08:53)
[2022-11-02] MEDS: lisinopriL 10 MG TABLET 30 MG PO (08:53)
[2022-11-02] MEDS: PANTOPRAZOLE 40 MG TABLET PO (08:53)
--- NOTE | 2022-11-02 09:11 | PM.CNCAR ---
Assessment and Plan Assessment and plan (1) Non-ST elevation SD (NSTEMI): Code(s): I21.4 - Non-ST elevation (NSTEMI) myocardial infarction Status: Acute Assessment and Plan: Presentation and workup consistent with ACS. Discussed recommendations for coronary angiography, including procedural details, indications for procedure, risks vs benefits, etc. Patient agrees to cath. Will plan for cardiac cath 11/03 in the AM. Patient to be NPO at midnight. Pre-cath orders placed. Continue with Heparin drip. Continue with ASA 81mg once daily. Will start high-intensity statin. Will start beta boone. Load with Plavix 600mg x 1, continue with 75mg once daily thereafter. Echo ordered. (2) Hypertension: Code(s): I10 - Essential (primary) hypertension Status: Acute Assessment and Plan: Blood pressure is controlled. Continue with home medication of Lisinopril. (3) Mixed hyperlipidemia: Code(s): E78.2 - Mixed hyperlipidemia Status: Acute Assessment and Plan: Start high-intensity statin. (4) Former tobacco use: Code(s): Z87.891 - Personal history of nicotine dependence Status: Acute Assessment and Plan: Encouraged continued abstinence. History of Present Illness History of Present Illness Consult date/time: 11/02/22 09:11 Requesting physician: Lamonte Gallegos MD Consult reason: chest pain Reason For Visit: non st elevation mi Narrative: We are consulted for NSTEMI. This is a 67-year-old female with a history of hypertension, former smoker, COPD who presented to [place] [facility] 11/01 with chest pain. Chest pain began around 5-6PM while sitting with her family at home. [place] like a dull pressure in the middle of her chest. [place] short of breath at that time. No radiation of the pain. Pain lasted until 10-11PM and then subsided. Patient states she feels better this morning and has very mild chest tightness but no longer having the chest pain that she had yesterday. No known history of heart disease. Quit smoking 2 years ago. Patient had undergone treadmill stress test in 05/2021 that showed no ischemic EKG changes, poor functional capacity, hypertensive blood pressure response. Workup this far has shown: EKG with sinus rhythm without ischemic changes. CXR without acute findings. Troponins of: 0.229 --> 1.450 --> 1.780 Patient loaded with ASA, Started on Heparin drip. Review of Systems Review of Systems: All systems reviewed & are unremarkable except as noted in HPI and below (HPI) [facility] Past Medical History Medical History Acute bronchitis Acute non-recurrent maxillary sinusitis Atypical chest pain Exercise stress test on 05/31/2021 negative for ischemia with poor exercise tolerance BMI 21.0-21.9, adult BMI 23.0-23.9, adult Breast cancer screening by mammogram normal mammogram 05/29/2021. Normal mammogram 07/31/2022. Chronic hip pain, bilateral X-rays of the hips on 04/30/2022 were unremarkable. Chronic low back pain with bilateral sciatica x-ray of the lumbar spine on 04/30/2022 reveals levoscoliosis but otherwise unremarkable. Colon cancer screening (05/08/22) Cologuard screening on 05/08/2022 was positive. The patient needs colonoscopy 05/14/2022. colonoscopy on 06/26/2022 was negative. Cough present for greater than 3 weeks Emphysema/COPD moderate COPD with no improvement with bronchodilator on PFT on 05/31/2021 Encounter for screening for other viral diseases Encounter for screening for other viral diseases Encounter for wellness examination in adult Exposure to COVID-19 virus Grieving daughter July, Iron deficiency anemia, unspecified level low at 22 on 11/09/2015. Iron normal at 89 with 24% saturation with ferritin low at 12 on 10/25/2021. Hemoglobin 12.7, iron 118, 31% saturation, ferritin 13 on 10/02/2022. Kyphosis Left axillary artery thrombus Left groin pain
[2022-11-02 09:39] LABS: Partial Thromboplastin Time 68.1 SECONDS (22.3-36.8)
[2022-11-02 10:19] LABS: Hemoglobin A1C 5.3 % (<5.7)
[2022-11-02] MEDS: METOPROLOL SUCCINATE EXT REL 25 MG TABCR PO (11:01)
[2022-11-02] MEDS: CLOPIDOGREL BISULFATE 300 MG TABLET 600 MG PO (11:02)
[2022-11-02] MEDS: ATORVASTATIN 40 MG TABLET 80 MG PO (11:02)
[2022-11-02] MEDS: ONDANSETRON INJ 4 MG/2 ML VIAL IV PUSH (11:34)
--- NOTE | 2022-11-02 12:10 | PM.IMPN ---
Progress Note: A&P Assessment and Plan (1) Non-ST elevation [place] (NSTEMI): Code(s): I21.4 - Non-ST elevation (NSTEMI) myocardial infarction Status: Acute Assessment and Plan: Admit to IMU On heparin drip Cardiology consult Serial troponins Plan for catheterization tomorrow (2) Peripheral vascular disease: Onset Date: ~05/11/22 Code(s): I73.9 - Peripheral vascular disease, unspecified Status: Acute Assessment and Plan: Unchanged (3) Chronic low back pain with bilateral sciatica: Code(s): M54.41 - Lumbago with sciatica, right side; M54.42 - Lumbago with sciatica, left side; G89.29 - Other chronic pain Status: Acute Assessment and Plan: Unchanged (4) Emphysema/COPD: Code(s): J43.9 - Emphysema, unspecified Status: Acute Assessment and Plan: Continue home meds Not actively wheezing (5) Former tobacco use: Code(s): Z87.891 - Personal history of nicotine dependence Status: Acute Assessment and Plan: 45 pack year history Subjective Date/time seen: 11/02/22 12:10 No new complaints Exam Narrative: Patient is sitting in stretcher in semi upright position Const: General: comfortable, no acute distress, well developed, alert, awake, average body habitus and thin Nutritional Appearance: average body habitus and thin Orientation/consciousness: patient oriented x3 HENMT: Head: normal to inspection, normocephalic and atraumatic Ears: hearing grossly normal bilaterally Face/Nose/Sinus: normal facial exam Face and sinus: normal facial exam Eyes: General: appearance normal, both eyes and all related structures Pupils: Equal, round and reactive pupils present EOM: EOMs intact bilaterally Neck: Neck: full ROM, no lymphadenopathy and no JVD Thyroid: thyroid normal Lymphatic: no lymphadenopathy noted Resp: Effort & Inspection: normal respiratory effort and able to speak in complete sentences Auscultation: clear to auscultation bilaterally Cardio: Jugular venous distension: no JVD Rate: regular rate Rhythm: regular rhythm Heart sounds: S1 normal heart sound present and S2 normal heart sound present : General: Yes deferred Skin: Rashes: no rashes Wounds: no wounds Neuro: General: patient oriented x3 and CN's II-XI intact bilaterally Cranial nerves: Yes CN's II-XII intact bilaterally and Yes Equal, round and reactive pupils present Cognition (Neuro): normal cognition Speech: normal speech Gait exam (Neuro): Normal gait present Motor exam (neuro): 5/5 motor strength present throughout Sensory Exam: No Sensory deficit (Neuro) Extrem: General: normal to inspection, full ROM, no joint enlargement and no pedal edema Objective Data Vital Signs Vital Signs: Vital Signs - 24 hr 11/01/22 19:45 11/01/22 20:22 11/01/22 20:31 Temperature 97.7 F Pulse Rate 105 H 87 85 Respiratory Rate 18 24 H 20 Blood Pressure 169/88 H 145/79 H Pulse Oximetry 96 95 96 Oxygen Delivery Room Air Oxygen Flow Rate 11/01/22 20:32 11/01/22 20:43 11/01/22 20:45 Temperature Pulse Rate 78 65 59 L Respiratory Rate 20 13 13 Blood Pressure 86/53 L Pulse Oximetry 96 95 93 Oxygen Delivery Oxygen Flow Rate 11/01/22 20:46 11/01/22 21:00 11/01/22 21:01 Temperature Pulse Rate 64 72 72 Respiratory Rate 14 18 12 Blood Pressure 84/48 L 103/66 Pulse Oximetry 95 91 91 Oxygen Delivery Oxygen Flow Rate 11/01/22 21:15 11/01/22 22:33 11/01/22 21:31 Temperature Pulse Rate 76 96 86 Respiratory Rate 15 14 19 Blood Pressure 132/76 140/82 Pulse Oximetry 90 94 94 Oxygen Delivery Oxygen Flow Rate 11/01/22 21:33 11/01/22 21:45 11/01/22 21:47 Temperature Pulse Rate 85 94 83 Respiratory Rate 16 20 16 Blood Pressure 129/66 Pulse Oximetry 96 93 94 Oxygen Delivery Oxygen Flow Rate 11/01/22 22:00 11/01/22 22:01 11/01/22 22:26 Temperature Pulse Rate 100 96 87 Respiratory Rate 30 H
[2022-11-02 17:21] LABS: Partial Thromboplastin Time 94.8 SECONDS (22.3-36.8)
[2022-11-02 23:27] LABS: Partial Thromboplastin Time 73.9 SECONDS (22.3-36.8)
[2022-11-02] MEDS: ACETAMINOPHEN 325 MG TABLET 650 MG PO (23:27)
[2022-11-03] VITALS (19 sets, daily range): BP systolic 108–131; BP diastolic 49–74; PULSE 69–102; RESP 14–22; TEMP 36.1–36.9; O2SAT 91–95
--- NOTE | 2022-11-03 | ECHO_ITS ---
Patient Info Name: Betty Robertson Age: 67 years : 1955 Gender: Female Ht: 64 in Wt: 134 lbs BSA: 1.66 m2 HR: 78 bpm BP: 114 / 60 mmHg Heart Rhythm: Sinus Rhythm Technical Quality: Good Exam Date: 11/03/2022 1:01 PM Exam Location: [facility] Pulmonary Exam Room: 210 Patient Status: Inpatient Admit Date: 11/01/2022 Staff Ordering Physician: Krystian Moreno MD (redd/sarah) Senior Accounting Clerk: Caty Nava RDCS Attending Provider: Ayan Tomlin MD Referring Physician: Josh GILLESPIE; Exam Type: CA echo doppler color flow Study Info Indications - NSTEMI Complete two-dimensional, color flow and Doppler transthoracic echocardiogram is performed. Summary 1. Complete two-dimensional, color flow and Doppler transthoracic echocardiogram is performed. 2. Left ventricular chamber dimension is normal. 3. Left ventricular systolic function is mildly reduced, estimated at 40-45%. 4. Regional wall motion abnormalities consistent with Takotsubo cardiomyopathy. 5. The left ventricular diastolic function is grade I diastolic dysfunction. 6. Right ventricular systolic function is normal. 7. The mitral valve has thickened leaflets. 8. The mitral valve annulus is mildly calcified. 9. There is mild mitral valve regurgitation. 10. There is mild tricuspid valve regurgitation. Left Ventricle Regional wall motion abnormalities consistent with Takotsubo cardiomyopathy. Left ventricular chamber dimension is normal. Left ventricular systolic function is mildly reduced, estimated at 40-45%. There is no increased left ventricular wall thickness. The left ventricular diastolic function is grade I diastolic dysfunction. Global longitudinal strain is abnormal at -13 %. Right Ventricle Right ventricular chamber dimension is normal. Right ventricular systolic function is normal. Left Atria Left atrial chamber dimension is normal. Right Atria Right atrial chamber dimension is normal. Atrial Septum Intact interatrial septum visualized by color flow imaging. Aortic Valve The aortic valve is not well visualized. There is no aortic valve stenosis. There is no aortic valve regurgitation. Pulmonic Valve The pulmonic valve is not well visualized. Mitral Valve The mitral valve has thickened leaflets. There is no mitral valve stenosis. There is mild mitral valve regurgitation. The mitral valve annulus is mildly calcified. Tricuspid Valve There is mild tricuspid valve regurgitation. Pericardium/Pleural The pericardium appears epicardial fat pad. There is no pericardial effusion. Inferior Vena Cava Normal inferior vena cava with >50% collapse upon inspiration consistent with normal right atrial pressure, 3 mmHg. Aorta The aortic root size at the sinus of Valsalva is normal. Left Ventricular Outflow Tract Name Value Normal LVOT 2D LVOT Diameter 2.0 cm LVOT Doppler LVOT Peak Gradient 5 mmHg LVOT Mean Gradient 3 mmHg LVOT VTI 21 cm LVOT VTI/AV VTI Ratio 0.9
--- NOTE | 2022-11-03 01:07 | PC.NURSE ---
Patient NPO at 0000 for cardiac cath procedure, patient reminded and is agreeable.
[2022-11-03 04:59] LABS: Hematocrit 37.1 % (37.0-47.0); Hemoglobin 12.1 g/dL (12.0-15.0); Mean Corpuscular HGB Conc 32.6 g/dl (32-36); Mean Corpuscular Hemoglobin 27.6 pg (26-34); Mean Corpuscular Volume 84.7 fl (80-100); Mean Platelet Volume 8.8 fl (7.4-10.4); Platelet Count Result 288 k/mm3 (150-375); Red Blood Count 4.38 M/mm3 (4.2-5.4); Red Cell Distribution Width 12.8 % (11.5-14.5); White Blood Count 6.8 K/mm3 (4.5-10.0)
[2022-11-03 05:08] LABS: Anion Gap 1 mmol/L (8-16); Blood Urea Nitrogen 20 mg/dL (7-17); Calcium 8.9 mg/dL (8.4-10.2); Carbon Dioxide 32 mmol/L (22-30); Chloride 103 mmol/L (98-107); Estimated CRCL calculation 47 ml/min; Estimated Glomerular Filt Rate > 60; Glucose 96 mg/dL (65-110); Potassium 4.3 mmol/L (3.4-5.0); Sodium 136 mmol/L (137-145)
[2022-11-03 05:12] LABS: Partial Thromboplastin Time 86.1 SECONDS (22.3-36.8)
[2022-11-03] MEDS: NITROGLYCERIN OINTMENT 1 INCH DOSE TRANSDERM (05:48)
[2022-11-03] MEDS: HEPARIN SOD/D5W 100 UNITS/ML 25,000 UNITS/250 ML BAG 8 UNITS IV CONT (05:52)
--- NOTE | 2022-11-03 09:27 | WPDMODSED ---
Moderate Sedation Note-Pt Data Patient Data Diagnosis: NSTEMI Present Complaint: NSTEMI Procedure to be performed/Plan: Coronary angiography, LHC, +/- PCI Allergies Allergy/AdvReac Type Severity Reaction Status Date / Time ciprofloxacin Allergy Unknown Joint pain Verified 11/01/22 20:22 Penicillins Allergy Unknown Rash Verified 11/01/22 20:22 Home Medications Medication Instructions Recorded Confirmed Type esomeprazole magnesium 20 mg 20 mg PO DAILY 04/05/20 11/01/22 History capsule,delayed release (Nexium 24HR) ibuprofen 800 mg tablet 800 mg PO TID PRN pain #90 tabs 11/22/21 11/01/22 Rx ferrous sulfate 325 mg (65 mg 325 mg PO WEEKLY 04/30/22 11/01/22 History iron) tablet fexofenadine-pseudoephedrine ER 1 tablet PO DAILY PRN allergy 04/30/22 11/01/22 History 180 mg-240 mg tablet,ext.release symptoms 24 hr (Lzia-D 24 Hour) albuterol sulfate 90 mcg/actuation 2 puff inhalation Q4H PRN 10/28/22 11/01/22 Rx aerosol inhaler (ProAir HFA) shortness of breath or wheezing #8.5 grams lisinopril 30 mg tablet 30 mg PO DAILY #90 tabs 10/28/22 11/01/22 Rx amitriptyline 10 mg tablet 20 mg PO HS 11/01/22 11/01/22 History aspirin 81 mg chewable tablet 81 mg PO DAILY 11/01/22 11/01/22 History umeclidinium 62.5 mcg-vilanterol 1 inh inhalation DAILY 11/01/22 11/01/22 History 25 mcg/actuation powdr for inhalation (Anoro Ellipta) zolpidem 10 mg tablet (Ambien) 10 mg PO HS PRN insomnia 11/01/22 11/01/22 History Current Medications: Active Medications Acetaminophen (Acetaminophen 325 Mg Tablet) 650 mg PO Q6H PRN PRN Reason: Headache Last Admin: 11/02/22 23:27 Dose: 650 mg Albuterol (Albuterol Sulfate (*Sp) Aerosol 1 Puff) 2 puff INHALATION Q4H PRN PRN Reason: shortness of breath or wheezing Amitriptyline HCl (Amitriptyline Hcl 10 Mg Tablet) 20 mg PO HS ROMINA Last Admin: 11/02/22 20:14 Dose: 20 mg Aspirin (Aspirin 81 Mg Chewable Tablet) 81 mg PO DAILY@0800 [facility] Last Admin: 11/02/22 08:53 Dose: 81 mg Atorvastatin Calcium (Atorvastatin 40 Mg Tablet) 80 mg PO DAILY [facility] Last Admin: 11/02/22 11:02 Dose: 80 mg Clopidogrel Bisulfate (Clopidogrel Bisulfate 75 Mg Tablet) 75 mg PO QAM [facility] Ferrous Sulfate (Ferrous Sulfate 324 Mg Tablet) 324 mg PO Fr@0800 [facility] Heparin Sodium (Porcine) (Heparin Sodium 5,000 Units/Ml Vial) 4,000 units IV PUSH PRN PRN PRN Reason: aPTT less than 55 seconds Heparin Sodium (Porcine) (Heparin Sodium 5,000 Units/Ml Vial) 2,500 units IV PUSH PRN PRN PRN Reason: aPTT 55 - 70 seconds Heparin Sodium/Dextrose (Heparin Sodium/D5w 100 Units/Ml) 25,000 units in 250 mls @ 8 mls/hr IV CONT .Q24H [facility]; Protocol Last Admin: 11/03/22 05:52 Dose: 800 units/hr, 8 mls/hr Sodium Chloride (Normal Saline Iv) 1,000 mls @ 125 mls/hr IV CONT .Q8H ONE Stop: 11/03/22 17:24 Lisinopril (Lisinopril 10 Mg Tablet) 30 mg PO DAILY [facility] Last Admin: 11/02/22 08:53 Dose: 30 mg Loratadine/Pseudoephedrine Sulfate (Loratadine/Pseudoephedrine (*Crx) 10/240 Mg Tablet Er 24 Hr) 1 tab PO DAILY PRN PRN Reason: allergy symptoms Metoprolol Succinate (Metoprolol Succinate Ext Rel 25 Mg Tabcr) 25 mg PO QAM [facility] Last Admin: 11/02/22 11:01 Dose: 25 mg Nitroglycerin (Nitroglycerin Ointment 1 Inch Dose) 1 inch TRANSDERM Q6HR [facility] Last Admin: 11/03/22 05:48 Dose: 1 inch Nitroglycerin (Nitroglycerin Sl 0.4 Mg Tablet) 0.4 mg SUBLINGUAL Q5MIN PRN PRN Reason: Chest Pain Ondansetron HCl (Ondansetron Inj 4 Mg/2 Ml Vial) 4 mg IV PUSH Q4H PRN PRN Reason: Nausea Last Admin: 11/02/22 11:34 Dose: 4 mg Pantoprazole Sodium (Pantoprazole 40 Mg Tablet) [facility] [place] Admin: 11/02/22 08:53 Dose: 40 mg Perflutren Lipid Microsphere (Perflutren Lipid Microspheres 1.5 Ml Vial Diluted To 10 Ml Total Volume) 0 ml IV PUSH ONCE PRN; Protocol PRN Reason: adequate visualization Stop: 11/04/22 09:08 Umeclidinium/Vilanterol (Umeclidinium/Vilanterol 62.5-25 Mcg Ellipta) 1 [facility] [place]
--- NOTE | 2022-11-03 09:28 | WPDCARDPROC ---
Cardiac Cath Procedure Note Date of procedure:: 11/03/22 Performing physician:: CATHETERIZATION LABORATORY REPORT Procedure Date: 11/03/2022 Sensor Operator: Krystian Moreno M.D., [facility]? Referring Physician: Krystian Moreno M.D. Anesthesia: Versed and Fentanyl were ordered and given in my presence at 08:55, procedure ended at 09:20. Supervision of nurse monitored moderate sedation with Versed and Fentanyl was provided for 25 minutes. Total of Versed 2mg and Fentanyl 50mcg were administered by the Ultrasound Applications Specialist RN Eleni Mcguire. Pre-op Diagnosis: Coronary artery disease Post-op Diagnosis: Mild-moderate non-obstructive coronary artery disease Left ventricular end-diastolic pressure of 20mmHg Left ventricular angiogram consistent with Takotsubo cardiomyopathy Procedure(s): 1. Moderate sedation 2. Ultrasound-guided access of the right radial artery 3. Coronary angiography 4. Left heart cath 5. Left ventricular angiogram Access Site: Right radial artery Brief History and Clinical Indications: Patient is a 67-year-old female who is referred for coronary angiography for NSTEMI. All risks, benefits and alternatives to left heart catheterization with or without percutaneous coronary intervention was discussed at length with the patient. Risk of complications including but not limited to bleeding, infection, arrhythmia, stroke, worsening kidney function, blood loss, groin hematoma, limb loss, emergency coronary artery bypass grafting, and even were discussed with the patient and all questions were answered. The patient understood and wished to proceed. Time out called, patient name, date of , medical record number, allergies, procedure performed, identify Sensor Operator, patient and staff member concurred with accurate data, procedure carried on. Findings: LEFT HEART CATHETERIZATION FINDINGS: 1. Left main: The left main coronary artery is widely patent without any significant obstructive disease. 2. Left anterior descending: Calcifications seen in the LAD. There is an eccentric moderate 50% stenosis in the proximal-mid LAD. 3. Left circumflex: The left circumflex artery has mild luminal irregularities without any significant obstructive angiographic disease. Obtuse marginal vessel has a mild 10-20% lesion in its mid portion; remainder of the vessel has mild luminal irregularities. 4. Right coronary artery: The RCA is the dominant vessel. The proximal-mid RCA has mild 30-40% disease. Remainder of the RCA has mild luminal irregularities. The RPDA and RPLV are without any significant obstructive angiographic disease. 5. Left ventricle: A. End-diastolic pressure 20mmHg. B. LV gram: Wall motion consistent with Takotsubo cardiomyopathy. LVEF appears mildly reduced. C. No significant gradient across aortic valve on catheter pullback. Description of Procedure: Informed consent signed and placed in the chart. Patient transferred to greenskeeper laborer room. Prepped and draped in usual sterile fashion. 2% lidocaine injected subcutaneously in right wrist area. 22-gauge venipuncture catheter used to access the right radial artery with the Seldinger technique. 6-FR slender sheath placed in right radial artery. Nitroglycerine and Verapamil were given intraarterial through the sheath. Versacore wire advanced under fluoroscopy 5F Tig 4 diagnostic catheter engaged Left Main Coronary Artery. 5F Tig 4 diagnostic catheter engaged Right Coronary Artery Multiple orthogonal angiogram obtained and reviewed 5F Pigtail diagnostic catheter crossed aortic valve to obtain LVEDP, LV angiogram performed. Hemostasis was achieved by application of TR band. ? Assessment: Mild-moderate non-obstructive coronary artery disease Left ventricular end-diastolic pressure of 20mmHg Left ventricular angiogram consistent with Takotsubo cardiomyopathy Post Operative Condition: Stable No significant blood loss Disposition: Floor Plan: The patient will be monitored
--- NOTE | 2022-11-03 09:51 | PM.PNCARD ---
Progress Note: A&P Assessment and Plan (1) Non-ST elevation [place] (NSTEMI): Onset Date: 11/01/22 Code(s): I21.4 - Non-ST elevation (NSTEMI) myocardial infarction Status: Acute (2) Mixed hyperlipidemia: Code(s): E78.2 - Mixed hyperlipidemia Status: Acute (3) History of tobacco abuse: Code(s): Z87.891 - Personal history of nicotine dependence Status: Acute Plan Cardiac cath showed: Mild-moderate non-obstructive coronary artery disease Left ventricular end-diastolic pressure of 20mmHg Left ventricular angiogram consistent with Takotsubo cardiomyopathy Will discontinue Heparin drip, Plavix. Continue with ASA, statin, beta boone, ACEi. Echocardiogram pending. Further recommendations pending results of echo. Subjective Date/time seen: 11/03/22 09:51 Interval history: Reason for visit: NSTEMI HPI: We are consulted for NSTEMI. This is a 67-year-old female with a history of hypertension, former smoker, COPD who presented to [facility] 11/01 with chest pain. Chest pain began around 5-6PM while sitting with her family at home. [place] like a dull pressure in the middle of her chest. [place] short of breath at that time. No radiation of the pain. Pain lasted until 10-11PM and then subsided. Patient states she feels better this morning and has very mild chest tightness but no longer having the chest pain that she had yesterday. No known history of heart disease. Quit smoking 2 years ago. Patient had undergone treadmill stress test in 05/2021 that showed no ischemic EKG changes, poor functional capacity, hypertensive blood pressure response. Workup this far has shown: EKG with sinus rhythm without ischemic changes. CXR without acute findings. Troponins of: 0.229 --> 1.450 --> 1.780. Patient loaded with ASA, Started on Heparin drip. Date of service 11/03: No acute events overnight. Cardiac cath this morning. Review of Systems Review of Systems: 8 point ROS obtained. Negative, unless stated in HPI. Exam Const: General: comfortable and no acute distress HENMT: Mouth: Yes moist mucous membranes Eyes: General: appearance normal, both eyes and all related structures Sclera: sclerae normal Neck: Neck: supple Resp: Effort & Inspection: normal respiratory effort Auscultation: diminished lung sounds Cardio: Rate: regular rate Rhythm: regular rhythm Heart sounds: no murmurs GI: GI Palp: Yes Soft to palpation and No Tenderness to palpation present (GI) Skin: General skin exam: normal color Neuro: Speech: normal speech Extrem: General: normal to inspection Psych: Mental Status: mental status grossly normal Affect: normal affect Objective Data Vital Signs Vital Signs: Vital Signs - 24 hr 11/02/22 11:01 11/02/22 12:00 11/02/22 10:00 Temperature 36.1 C L Pulse Rate 88 97 92 Respiratory Rate 16 Blood Pressure 133/73 Pulse Oximetry 96 Oxygen Delivery 11/02/22 12:00 11/02/22 12:00 11/02/22 14:00 Temperature Pulse Rate 96 99 Respiratory Rate Blood Pressure Pulse Oximetry Oxygen Delivery Room Air 11/02/22 16:00 11/02/22 16:00 11/02/22 16:00 Temperature 36.7 C Pulse Rate 86 85 Respiratory Rate 20 Blood Pressure 135/72 Pulse Oximetry 94 Oxygen Delivery Room Air 11/02/22 18:00 11/02/22 20:00 11/02/22 20:00 Temperature 36.8 C Pulse Rate 106 H 92 90 Respiratory Rate 20 Blood Pressure 120/74 Pulse Oximetry 100 Oxygen Delivery 11/02/22 22:00 11/02/22 23:11 11/03/22 00:00 Temperature 35.9 C L Pulse Rate 71 87 Respiratory Rate 16 Blood Pressure 117/69 Pulse Oximetry 97 Oxygen Delivery Room Air 11/03/22 00:00 11/03/22 02:00 11/03/22 04:00 Temperature Pulse Rate 102 H 84 99 Respiratory Rate Blood Pressure Pulse Oximetry Oxygen Delivery 11/03/22 04:00 11/03/22 04:00 11/03/22 05:56 Temperature 36.3 C L Pulse Rate 85 69 Respiratory Rate 16 Blood Pressure 114/60 P
[2022-11-03] MEDS: SODIUM CHLORIDE 0.9% IV 1,000 ML 125 ML IV CONT (11:40)
[2022-11-03] MEDS: ATORVASTATIN 40 MG TABLET 80 MG PO (11:40)
[2022-11-03] MEDS: PANTOPRAZOLE 40 MG TABLET PO (11:40)
[2022-11-03] MEDS: lisinopriL 10 MG TABLET 30 MG PO (11:40)
[2022-11-03] MEDS: METOPROLOL SUCCINATE EXT REL 25 MG TABCR PO (11:40)
--- NOTE | 2022-11-03 12:12 | PC.NURSE ---
This patient, Betty Robertson, was received from chest pain center on 11/03/22 at 1130.Patient/family oriented to unit policies and routines. Report received from ERIC Knowles
--- NOTE | 2022-11-03 12:29 | PM.DS ---
DS: Admitting Diagnosis Discharge Date November 03, [address]-elevation MT DS: Discharge Diagnosis Discharge Diagnosis (1) Non-ST elevation MT (NSTEMI): Onset Date: 11/01/22 Code(s): I21.4 - Non-ST elevation (NSTEMI) myocardial infarction Status: Acute Assessment and Plan: Admit to IMU On heparin drip Cardiology consult Serial troponins Plan for catheterization tomorrow (2) Peripheral vascular disease: Onset Date: ~05/11/22 Code(s): I73.9 - Peripheral vascular disease, unspecified Status: Acute Assessment and Plan: Unchanged (3) Chronic low back pain with bilateral sciatica: Code(s): M54.41 - Lumbago with sciatica, right side; M54.42 - Lumbago with sciatica, left side; G89.29 - Other chronic pain Status: Acute Assessment and Plan: Unchanged (4) Emphysema/COPD: Code(s): J43.9 - Emphysema, unspecified Status: Acute Assessment and Plan: Continue home meds Not actively wheezing (5) Former tobacco use: Code(s): Z87.891 - Personal history of nicotine dependence Status: Acute Assessment and Plan: 45 pack year history DS: Summary Hospital Course Hospital Course: Patient was admitted for elevated troponin. Underwent cardiac catheterization. Found to have Takotsubo's. Patient is for charge on HERMELINDO-inhibitor, beta-boone, aspirin. On her catheterization showed mild coronary disease. Follow Cardiology. Time Spent with Patient Time attestation: Total time spent providing and/or coordinating discharge services: Exam Narrative: Patient is sitting in stretcher in semi upright position Const: General: comfortable, no acute distress, well developed, alert, awake, average body habitus and thin Nutritional Appearance: average body habitus and thin Orientation/consciousness: patient oriented x3 HENMT: Head: normal to inspection, normocephalic and atraumatic Ears: hearing grossly normal bilaterally Face/Nose/Sinus: normal facial exam Face and sinus: normal facial exam Eyes: General: appearance normal, both eyes and all related structures Pupils: Equal, round and reactive pupils present EOM: EOMs intact bilaterally Neck: Neck: full ROM, no lymphadenopathy and no JVD Thyroid: thyroid normal Lymphatic: no lymphadenopathy noted Resp: Effort & Inspection: normal respiratory effort and able to speak in complete sentences Auscultation: clear to auscultation bilaterally Cardio: Jugular venous distension: no JVD Rate: regular rate Rhythm: regular rhythm Heart sounds: S1 normal heart sound present and S2 normal heart sound present : General: Yes deferred Skin: Rashes: no rashes Wounds: no wounds Neuro: General: patient oriented x3 and CN's II-XI intact bilaterally Cranial nerves: Yes CN's II-XII intact bilaterally and Yes Equal, round and reactive pupils present Cognition (Neuro): normal cognition Speech: normal speech Gait exam (Neuro): Normal gait present Motor exam (neuro): 5/5 motor strength present throughout Sensory Exam: No Sensory deficit (Neuro) Extrem: General: normal to inspection, full ROM, no joint enlargement and no pedal edema DS: Data Data Completed and Pending Labs on day of discharge: Labs from last 24 hours 11/03/22 11/03/22 11/03/22 04:44 04:44 04:44 WBC 6.8 RBC 4.38 Hgb 12.1 Hct 37.1 MCV 84.7 MCH 27.6 MCHC 32.6 RDW 12.8 Plt Count 288 MPV 8.8 APTT 86.1 H Sodium 136 L Potassium 4.3 Chloride 103 Carbon Dioxide 32 H Anion Gap 1 L BUN 20 H Creatinine 0.90 Estim Creat Clear Calc 47 Estimated GFR > 60 Glucose 96 Calcium 8.9 Troponin I 11/02/22 11/02/22 11/02/22 23:02 17:01 14:51 WBC RBC Hgb Hct MCV MCH MCHC RDW Plt Count MPV APTT 73.9 H 94.8 H Sodium Potassium Chloride Carbon Dioxide Anion Gap BUN Creatinine E
== END 2022-11-03 15:47 | disposition home or self-care (01) | DRG 287 ==
LOC: ANHED 21:14 → ANHIMU 22:42
PROVIDERS: Internal Medicine; Admitting Provider Internal Medicine; Emergency Provider Emergency Medicine; PCP Family Medicine; Visit Provider Chiropractor
PROC: 4A023N7 Measurement of Cardiac Sampling and Pressure, Left Heart, Percutaneous Approach (ICD-10-PCS; CPT 93452; principal; 2022-11-03 08:30)
DX: I51.81 Takotsubo syndrome (principal); I73.9 Peripheral vascular disease, unspecified; M54.41 Lumbago with sciatica, right side; M54.42 Lumbago with sciatica, left side; G89.29 Other chronic pain; J43.9 Emphysema, unspecified; E78.2 Mixed hyperlipidemia; I25.10 Atherosclerotic heart disease of native coronary artery without angina pectoris; Z87.891 Personal history of nicotine dependence; Z88.0 Allergy status to penicillin
CPT/HCPCS: 36415; 71046; 80048; 80053; 83036; 83690; 84484; 85025; 85027; 85610; 85730; 93005; 93306; 93458; 94640; 96374; 96375; 99285; A9270; C1769; C1887; C1894; J1644; J2250; J2270; J2405; J3010; J7030; J7040

== ENCOUNTER 2023-03-26 08:30 | Outpatient (RCR) | payer OTHER, SELFPAY ==
[2022-12-30 08:44] VITALS: PULSE 88
== END 2023-03-26 19:08 | disposition home or self-care (01) ==
LOC: ANHCPREHAB 08:30
PROVIDERS: PCP Family Medicine; Visit Provider Internal Medicine
DX: I25.2 Old myocardial infarction (principal); I51.81 Takotsubo syndrome
CPT/HCPCS: 93798

== ENCOUNTER 2023-04-24 11:44 | Emergency (ER) | payer OTHER, SELFPAY ==
--- NOTE | ~2023-04-24 | XR_ITS ---
Left elbow Technique: AP, oblique, and lateral views were obtained. Clinical History: Pain Findings: Elevation of the fat pads is compatible joint effusion, suspicious for occult radial head f racture. No definite fracture visualized on these images. No dislocation. Impression: Probable joint effusion, which is suspicious for underlying occult radial head fracture. Reviewed, dictated and finalized at [facility]. Impression: Probable joint effusion, which is suspicious for underlying occult radial head fracture.
[2023-04-24 11:57] VITALS: BP 112/60; PULSE 78; RESP 16; TEMP 36.4; O2SAT 99
[2023-04-24 11:58] VITALS: BP 112/60; PULSE 78; RESP 16; TEMP 36.4; O2SAT 99
--- NOTE | 2023-04-24 12:01 | ED.UPPEXIN ---
HPI - Extremity Injury (Upper) General Chief Complaint: Extremity Injury, Upper Stated Complaint: Injured left elbow Time Seen by Provider: 04/24/23 12:02 Source: patient, RN notes reviewed and old records reviewed Mode of arrival: ambulatory Limitations: no limitations History of Present Illness HPI narrative: 67-year-old female presents to the [facility] with complaints of left elbow pain, swelling and bruising after tripping and falling landing on her elbow. Swelling, bruising noted. Tenderness to the lateral aspect of the elbow. Decreased range of motion. Positive radial pulse. Capillary refill under 2 seconds. Strong roustabout hand noted Denies hitting head. No loss of consciousness. Walks with a normal gait. Has taken Tylenol for pain Onset (ago): day(s) (1) Related Data Home Medications Medication Instructions Recorded Confirmed esomeprazole magnesium 20 mg 20 mg PO DAILY 04/05/20 04/24/23 capsule,delayed release (Nexium 24HR) fexofenadine-pseudoephedrine ER 1 tablet PO DAILY PRN allergy 04/30/22 04/24/23 180 mg-240 mg tablet,ext.release symptoms 24 hr (Liza-D 24 Hour) amitriptyline 10 mg tablet 20 mg PO HS 11/01/22 04/24/23 aspirin 81 mg chewable tablet 81 mg PO DAILY 11/01/22 04/24/23 umeclidinium 62.5 mcg-vilanterol 1 inh inhalation DAILY 11/01/22 04/24/23 25 mcg/actuation powdr for inhalation (Anoro Ellipta) Allergies Allergy/AdvReac Type Severity Reaction Status Date / Time ciprofloxacin Allergy Unknown Joint pain Verified 03/12/23 08:24 Penicillins Allergy Unknown Rash Verified 03/12/23 08:24 Review of Systems Review of Systems: All systems reviewed & are unremarkable except as noted in HPI and below Constitutional: Constitutional: Reports no additional constitutional complaints Eyes: Eyes: Reports no additional eye complaints ENT: Reports system reviewed and no additional complaints, except as documented Cardiovascular: Cardiovascular: Reports no additional cardiovascular complaints, Denies chest pain and Denies dyspnea Respiratory: Respiratory: Reports no additional respiratory complaints, Denies chest congestion, Denies cough and Denies dyspnea Gastrointestinal: Gastrointestinal: Reports no additional gastrointestinal complaints, Denies abdominal pain, Denies nausea and Denies vomiting Musculoskeletal: Musculoskeletal: Reports as per HPI, Reports arthralgias and Reports joint swelling Integumentary/Breasts: Skin/Breast: Reports system reviewed and no additional complaints, except as docu Neurologic: Reports system reviewed and no additional complaints, except as documented Psychiatric: Psychiatric: Reports no additional psychiatric complaints Allergic/Immunologic: Allergic/Immunologic: Reports no additional allergic/immunologic complaints PMFSH Past Medical History Medical History Acute bronchitis Acute non-recurrent maxillary sinusitis Atypical chest pain Exercise stress test on 05/31/2021 negative for ischemia with poor exercise tolerance BMI 21.0-21.9, adult BMI 23.0-23.9, adult Breast cancer screening by mammogram normal mammogram 05/29/2021. Normal mammogram 07/31/2022. Chronic hip pain, bilateral X-rays of the hips on 04/30/2022 were unremarkable. Chronic low back pain with bilateral sciatica x-ray of the lumbar spine on 04/30/2022 reveals levoscoliosis but otherwise unremarkable. Colon cancer screening (05/08/22) Cologuard screening on 05/08/2022 was positive. The patient needs colonoscopy 05/14/2022. colonoscopy on 06/26/2022 was negative. Cough present for greater than 3 weeks Emphysema/COPD moderate COPD with no improvement with bronchodilator on PFT on 05/31/2021 Encounter for screening for other viral diseases Encounter for screening for other viral diseases Encounter for wellness examination in adult Exposure to COVID-19 virus Grieving daughter July, Hypertension Iron deficiency anem
== END 2023-04-24 13:04 | disposition home or self-care (01) ==
PROVIDERS: Emergency Provider Nurse Practitioner; PCP Family Medicine
DX: S52.102A Unspecified fracture of upper end of left radius, initial encounter for closed fracture (principal); W01.0XXA Fall on same level from slipping, tripping and stumbling without subsequent striking against object, initial encounter; J44.9 Chronic obstructive pulmonary disease, unspecified; I10 Essential (primary) hypertension; E78.2 Mixed hyperlipidemia; I73.9 Peripheral vascular disease, unspecified; Z87.891 Personal history of nicotine dependence
CPT/HCPCS: 29105; 73080; 99214; A4565; G0463

== ENCOUNTER 2023-08-10 10:57 | Outpatient (CLI) | payer OTHER, SELFPAY ==
--- NOTE | ~2023-08-10 | CT_ITS ---
CT Scan of the Chest without Contrast: Clinical Indication: Lung cancer screening, personal history of nicotine dependence Technique: Contiguous sections were acquired throughout the chest without intravenous contrast. Dose reduction technique was used on this scan by utilizing automated exposure control and iterative recon struction technique. The dose-length product (DLP) was 60.36 mGy-cm. COMPARISON: 08/07/2022 Findings: There is no evidence of any significant mediastinal, hilar or axillary lymphadenopathy. The mediastin al soft tissues appear normal. There is no evidence of pleural or pericardial effusion. The lungs are clear. No pulmonary nodules or infiltrates are noted. Images through the upper abdomen reveal no stable partially imaged left renal lesion. Impression: Lung RADS 1: Negative. 12 month follow-up screening CT advised. Partially imaged indeterminate left renal lesion again identified. Consider additional workup if not already performed. Reviewed, dictated and finalized at [facility]. AIN OF GUARDS Impression: Lung RADS 1: Negative. 12 month follow-up screening CT advised. Partially imaged indeterminate left renal lesion again identified. Consider add itional workup if not already performed.
== END 2023-08-10 10:58 | disposition home or self-care (01) ==
PROVIDERS: PCP Family Medicine; Visit Provider Nurse Practitioner Family
DX: Z12.2 Encounter for screening for malignant neoplasm of respiratory organs (principal); Z87.891 Personal history of nicotine dependence
CPT/HCPCS: 71271

== ENCOUNTER 2023-11-09 07:30 | Outpatient (CLI) | payer OTHER, SELFPAY ==
--- NOTE | ~2023-11-09 | MM_ITS ---
EXAMINATION: MM screening [facility] BI w jama HISTORY: Screening TECHNIQUE: Craniocaudal and mediolateral oblique 3-D tomosynthesis images were obtained and synthetic 2-D images were generated. CAD analysis was submitted and interpreted. COMPARISON: Comparison to multiple prior studies sequentially, with oldest reviewed study dated 06/24. BREAST PARENCHYMAL COMPOSITION: Not dense: There are scattered areas of fibroglandular density. FINDINGS: There are changes of prior breast implant explantation with associated stable implant cavit y and dystrophic calcifications. There is no evidence of suspicious mass, calcification, or information technology architect ural distortion to suggest malignancy in either breast. There has been no suspicious interval change. IMPRESSION: 1. No mammographic evidence of malignancy. 2. Recommend routine screening mammography in one year. BI-RADS Category 2: Benign finding(s). Reviewed, dictated and finalized at location A.
== END 2023-11-09 07:31 | disposition home or self-care (01) ==
LOC: ANHIMG 07:32
PROVIDERS: PCP Family Medicine; Visit Provider Family Medicine
DX: Z12.31 Encounter for screening mammogram for malignant neoplasm of breast (principal)
CPT/HCPCS: 77063; 77067

== ENCOUNTER 2024-02-04 09:17 | Emergency (ER) | payer OTHER, SELFPAY ==
[2024-02-04 09:29] VITALS: BP 109/70; PULSE 102; RESP 14; TEMP 36.2; O2SAT 96
--- NOTE | 2024-02-04 09:35 | ED.URI ---
HPI - URI/Sore Throat General Chief Complaint: Upper Respiratory Infection Stated Complaint: Sore Throat Time Seen by Provider: 02/04/24 09:35 History of Present Illness HPI Narrative: 68-year-old female presented for complaint of sore throat, body aches and fatigue. Onset 4 days. Endorses exposure to strep throat. Denies shortness of breath, wheezing, nausea, vomiting, diarrhea or fever. Took ibuprofen. Related Data Home Medications Medication Instructions Recorded Confirmed esomeprazole magnesium 20 mg 20 mg PO DAILY 04/05/20 02/04/24 capsule,delayed release (Nexium 24HR) aspirin 81 mg chewable tablet 81 mg PO DAILY 11/01/22 02/04/24 triamcinolone acetonide 55 mcg 1 spray intranasal . b.i.d. 05/14/23 02/04/24 nasal spray aerosol (Nasacort Allergy) ferrous sulfate 325 mg (65 mg 325 mg PO DAILY 11/17/23 02/04/24 iron) tablet ibuprofen 800 mg tablet 800 mg PO TID 02/04/24 02/04/24 Allergies Allergy/AdvReac Type Severity Reaction Status Date / Time ciprofloxacin Allergy Unknown Joint pain Verified 02/04/24 09:27 Penicillins Allergy Unknown Rash Verified 02/04/24 09:27 Review of Systems Review of Systems: CONSTITUTIONAL: Reports body aches, Denies fever, chills, or sweats. EYES: Denies visual changes, redness, or discharge. ENT: Reports sore throat Denies rhinorrhea, congestion, or otalgia. CARDIOVASCULAR: Denies chest pain, palpitations, or edema. RESPIRATORY: Denies dyspnea. GASTROINTESTINAL: Denies abdominal pain, nausea, vomiting, or diarrhea. SKIN: Denies rash, itching, or wounds. 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 Atypical chest pain Exercise stress test on 05/31/2021 negative for ischemia with poor exercise tolerance BMI 21.0-21.9, adult BMI 23.0-23.9, adult Breast cancer screening by mammogram normal mammogram 05/29/2021. Normal mammogram 07/31/2022. Normal 11/09/2023. Chronic hip pain, bilateral X-rays of the hips on 04/30/2022 were unremarkable. Chronic low back pain with bilateral sciatica x-ray of the lumbar spine on 04/30/2022 reveals levoscoliosis but otherwise unremarkable. Colon cancer screening (05/08/22) Cologuard screening on 05/08/2022 was positive. The patient needs colonoscopy 05/14/2022. colonoscopy on 06/26/2022 was negative. Cough present for greater than 3 weeks Emphysema/COPD moderate COPD with no improvement with bronchodilator on PFT on 05/31/2021 Encounter for screening for other viral diseases Encounter for screening for other viral diseases Encounter for wellness examination in adult Exposure to COVID-19 virus Grieving daughter July, Hypertension Iron deficiency anemia, unspecified level low at 22 on 11/09/2015. Iron normal at 89 with 24% saturation with ferritin low at 12 on 10/25/2021. Hemoglobin 12.7, iron 118, 31% saturation, ferritin 13 on 10/02/2022. Hemoglobin 11.9, hematocrit 37.5, iron 56 with 14% saturation and ferritin 10 on 03/31/2023. Iron low at 41 with 11% saturation and ferritin 15 with hemoglobin 12.6 on 10/15/2023. Kyphosis Left axillary artery thrombus Left elbow contusion Left groin pain Left kidney mass MRI of the kidneys on 09/25/2022 revealed bilateral renal cyst with 2 complex, proteinaceous /hemorrhagic cyst in left kidney, 2 cm and 9 mm , nonenhancing. No further evaluation needed. Medial epicondylitis, left elbow Mixed hyperlipidemia total cholesterol 243, HDL 59, triglycerides 74, LDL 154 on 10/25/2021. Cholesterol 242, triglycerides 93, HDL 69, LDL 153 on 10/02/2022. total cholesterol 166, triglycer
== END 2024-02-04 10:00 | disposition home or self-care (01) ==
PROVIDERS: Emergency Provider Nurse Practitioner Family; PCP Family Medicine
DX: J06.9 Acute upper respiratory infection, unspecified (principal); Z87.891 Personal history of nicotine dependence; I25.10 Atherosclerotic heart disease of native coronary artery without angina pectoris; J44.9 Chronic obstructive pulmonary disease, unspecified; I10 Essential (primary) hypertension; E78.2 Mixed hyperlipidemia; I25.2 Old myocardial infarction; I73.9 Peripheral vascular disease, unspecified; Z79.82 Long term (current) use of aspirin
CPT/HCPCS: 87081; 87880; 99213; G0463

== ENCOUNTER 2024-08-11 08:24 | Outpatient (CLI) | payer OTHER, SELFPAY ==
--- NOTE | ~2024-08-11 | CT_ITS ---
CT Scan of the Chest without Contrast: Clinical Indication: Lung cancer screening, nicotine dependence Technique: Contiguous sections were acquired throughout the chest without intravenous contrast. Dose reduction technique was used on this scan by utilizing automated exposure control and iterative recon struction technique. The dose-length product (DLP) was 58.42 mGy-cm. COMPARISON: 08/10/2023 Findings: Stable mild left axillary lymphadenopathy. No right axillary or mediastinal/hilar lymphadenopathy.. C oronary artery calcifications are present. There is no evidence of pleural or pericardial effusion. The lungs are clear. No pulmonary nodules or infiltrates are noted. Images through the upper abdomen reveal stable partially imaged hypodense left renal lesion, possibly hyperdense cyst. Impression: Lung RADS 1: Negative. 12 month follow-up screening CT advised. 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 12 month follow-up screening CT advised.
== END 2024-08-11 08:25 | disposition home or self-care (01) ==
LOC: ANHIMG 08:28
PROVIDERS: PCP Family Medicine; Visit Provider Nurse Practitioner Family
DX: Z12.2 Encounter for screening for malignant neoplasm of respiratory organs (principal); Z87.891 Personal history of nicotine dependence
CPT/HCPCS: 71271

== ENCOUNTER 2025-01-12 07:19 | Outpatient (CLI) | payer OTHER, SELFPAY ==
--- NOTE | ~2025-01-12 | MM_ITS ---
EXAMINATION: MM screening carla BI w jama HISTORY: Screening TECHNIQUE: Craniocaudal and mediolateral oblique 3-D tomosynthesis images were obtained and synthetic 2-D images were generated. CAD analysis was submitted and interpreted. COMPARISON: Comparison to multiple prior studies sequentially, with oldest reviewed study dated 01/2021. BREAST PARENCHYMAL COMPOSITION: Not dense: There are scattered areas of fibroglandular density. FINDINGS: Stable appearance to coarse dystrophic calcifications bilaterally and bilateral symmetric c avities for previous implant removal. There is no evidence of suspicious mass, calcification, or arch itectural distortion to suggest malignancy in either breast. There has been no suspicious interval ch iron. IMPRESSION: 1. No mammographic evidence of malignancy. 2. Recommend routine screening mammography in one year. BI-RADS Category 1: Negative Reviewed, dictated and finalized at location []
--- OUTSIDE RECORDS SUMMARY | 2025-01-12 07:25 | XMS_ITS | Encounter Summary ---
Author Organization [facility] Address [address] [place] [place] [address] Care Team Providers Care English Professor Name Role Phone Unavailable Primary Care Provider Unavailabl e Encounter Details Date Type Department Care Team (Late st Contact Info) Description 06/02/2023 Lab Requisition [facility] - DermPath Lab [address] [place] [address] Ernestine Tobin MD [address] [facility] [address] [place] [address] Social History Tobacco Use Types Packs/Day Years Used Date Smoking Tobacco: Never Assessed Comments Unknown Sex and Gender Information Value Date Recorded Sex Assigned at Not on file 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 Gender Identity Not on file Sexual Orientation Not on file documented as of this encounter Plan of Treatment Not on file documented as of this encounter Procedures Procedure Name Priority Date/Time Associated Diagnosis Comments DERMATOPATHOLOGY Routine 06/02/2023 8:24 AM CDT documented in this encounter Results * DERMATOPATHOLOGY (06/02/2023 8:24 AM CDT) Case Report Dermatopathology Report Case: [id number] Authorizing Provider: Ernestine Tobin MD Collected: 06/02/2023 08:24 AM Ordering Location: [facility] DermPath Lab Received: 06/02/2023 12:54 PM Pathologist: Jocelin Jones MD Specimen: Skin, left chest 3:27 PM CDT DERMATOPATHOLOGY LABORATORY Final Diagnosis Specimen A. SKIN, left chest: BASAL CELL CARCINOMA, PIGMENTED (C44.519) 3:27 PM CDT DERMATOPATHOLOGY LABORATORY at 1527 CDT Clinical History Pigmented vs Nevus shiney brown papule 3:27 PM T DERMATOPATHOLOGY LABORATORY Gross Description Specimen A: Received is one formalin filled container labeled with the patient's name and designated left chest. The specimen consists of a shave biopsy measuring 4x3x1 mm. Jar 0. 3:27 PM [facility] [place] [facility] Microscopic Description Specimen A. SKIN, left chest: There are aggregates of basaloid cells with a high nuclear to cytoplasmic ratio and peripheral palisading. There is abundant melanin. 3:27 PM T DERMATOPATHOLOGY LABORATORY Disclaimer An external and internal positive and negative controls are appropriate for the histochemical, immunohistochemical and immunofluorescence stain(s) in this case (if any), except where stated explicitly. The performance characteristics of the stain(s) cited in this report were developed and its performance characteristic determined by the Dermatopathology Laboratory at [facility], directed by Dr. Martell Stallworth. These tests need not be, and therefore are not, approved by the [place] Food and Drug Administration. The tests are used for clinical purposes. Billing Codes Specimen Charges Stain Charges 32106 1 3:27 PM CDT DERMATOPATHOLOGY LABORATORY Embedded Images 3:27 PM T DERMATOPATHOLOGY LABORATORY Pathology/Cytolo gy TISSUE SPECIMEN FROM SKIN / Unknown 06/02/2023 8:24 AM CDT 06/02/2023 12:54 PM CDT Ernestine Tobin MD LAB - PATHOLOGY/CYTOLOGY ORD ERABLES Final Result DERMATOPATHOLOGY LABORATORY [facility] - Department of Dermatology [facility] Medicine [address] [place] [address], [address] [phone] documented in this encounter Visit Diagnoses Not on filedocumented in this encounter
--- OUTSIDE RECORDS SUMMARY | 2025-01-12 07:25 | XMS_ITS | Referral Summary ---
Author Organization [facility] Address [address] [place] [address] Care Team Providers Care Rail Switch Operator Name Role Phone Peet Stallworth MD Primary Care Provider [phone] Allergies Active Allergy Reactions Criticality Noted Date Comments Ciprofloxacin Other (See comments) Low 07/20/2019 Swollen tendons Penicillins Rash Medium 07/20/2019 Medications amitriptyline (ELAVIL) 10 mg tabletIndications: Migraine Prevention Take 1 tablet (10 mg total) by mouth nightly Active albuterol HFA (PROVENTIL HFA,VENTOLIN HFA,PROAIR HFA) 90 mcg/actuation inhaler Inhale 2 puffs every 4 (four) hours as needed for wheezing Active aspirin 81 mg enteric coated tabletIndications: Myocardial Reinfarction Prevention Take 1 tablet (81 mg total) by mouth daily 60 tablet 07/20/20 19 Active Additional Information Patient taking differently:81 mg oralDaily with breakfast, Indications: Myocardial Reinfarction Prevention, Informant: Self, Reported on 11/27/2022 raNITIdine (ZANTAC) 300 mg tabletIndications: reflux Take 1 tablet (300 mg total) by mouth daily before breakfast 3 07/11/20 19 Active zolpidem (AMBIEN) 10 mg tabletIndications: Sleep-Onset Insomnia Take 1 tablet (10 mg total) by mouth nightly as needed 5 06/20/20 19 Active Anoro Ellipta 62.5-25 mcg/actuation blister with device INHALE 1 PUFF BY MOUTH EVERY 24 HOURS 11/04/19 23 Active ibuprofen (ADVIL,MOTRIN) 800 mg tablet Take 1 tablet (800 mg total) by mouth 3 (three) times a day as needed for pain 09/08/19 23 Active irbesartan (AVAPRO) 75 mg tabletIndications: hypertension Take 1 tablet (75 mg total) by mouth daily Active atorvastatin (LIPITOR) 40 mg tabletIndications: Dyslipidemia, goal LDL below 70 Take 1 tablet by mouth once daily 90 tablet 1 07/22/20 24 Active metoprolol XL (TOPROL-XL) 25 mg extended release tabletIndications: Takotsubo cardiomyopathy TAKE 1 TABLET BY MOUTH ONCE DAILY IN THE EVENING 90 tablet 1 07/22/20 24 Active Active Problems Problem Noted Date Diagnosed Date Takotsubo cardiomyopathy 03/06/2023 Coronary artery disease invo lving [place] coronary artery of [place] heart without angina pectoris 03/06/2023 Hypertension 03/06/2023 Claudication 07/25/2019 Overview (07/25/2019): Added automatically from request for surgery [id number] Immunizations Immunization Administration Dates Next Due Influenza, Unspecified 07/24/2019 Social History Tobacco Use Types Packs/Day Years Used Date Smoking Tobacco: Former Cigarettes 1 47.6 1 974 - 04/01/2021 Smokeless Tobacco: Never Tobacco Cessation:Counseling Given: Not Answered Alcohol Use Standard Drinks/Week Comments Yes 0 (1 standard drink = 0.6 oz pur e alcohol) social Comments No Sex and Gender Information Value Date Recorded Sex Assigned at Not on file 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 Gender Identity Not on file Sexual Orientation Not on file Last Filed Vital Signs Vital Sign Reading Time Taken Comments Blood Pressure 108/80 03/11/2024 10:48 AM CDT Pulse 42 03/11/2024 10:48 AM CDT Temperature 36.6 C (97.9 F) 08/16/2019 7:46 AM SENIOR INSTRUCTIONAL DESIGNER Respiratory Rate 18 08/16/2019 7:46 AM SENIOR INSTRUCTIONAL DESIGNER Oxygen Saturation 97% 03/11/2024 10:48 AM CDT Inhaled Oxygen Concentration - - Weight 60.1 kg (132 lb 8 oz) 03/11/2024 10:48 AM CDT Height 162.6 cm (5' 4 ) 03/11/2024 10:48 AM CDT Body Mass Index 22.74 03/11/2024 10:48 AM CDT Plan of Treatment Not on file Medical Devices Implanted Type Area Fur Scraper Device Identifier Shelf Expiration Date Model / Serial / Lot [employer] [id number] Vascu-Guard 8x.8cm Peripheral Patch Vascular Bovine Pericardium - [id number] Implanted:Qty: 1 on 08/15/2019 by Charlie Cervantes MD at [facility] Other - see comments Left: [employer]il[employer] [id number] 01/12/2024 [id number] / / [id number] Description:Peripheral vascu lar Patch Insurance [facility] [employer] [place] [address] [address] [facility] PPO [facility] HMO/PPO Address: [address] [place] [address] [facility] [employer] P[employer] Member Subscriber Plan / Payer (Ef fective 2022-Present) Name:Betty Heck Relation to Subscriber:Self Name:Betty Heck Payer ID:[id number] (NAIC) Type:MEDICARE RISK OTHER Address: [address] Advance Directives For more information, please contact: [phone] * Full Code (Latest Code Status on File) Date Activated Date Inactivated Comments 08/15/2019 2:26 PM 08/16/2019 2:21 PM Care Teams Rail Switch Operator Relationship Specialty Start Date End Date Pete Stallworth MD [address] [address] PCP - General Family Medicine 07/18/19
--- OUTSIDE RECORDS SUMMARY | 2025-01-12 07:25 | XMS_ITS | Encounter Summary ---
Author Organization [facility] Address [address] [facility] [place] [address] Care Team Providers Care Client Relationship Manager Name Role Phone Unavailable Primary Care Provider Unavailabl e Encounter Details Date Type Department Care Team (Late st Contact Info) Description 06/11/2023 Lab Requisition [facility] - D[facility] Lab [address] [facility] [place] [address] Ernestine Tobin MD [address] [facility] [address] [place] [address] Social History Tobacco Use Types Packs/Day Years Used Date Smoking Tobacco: Never Assessed Comments Unknown Sex and Gender Information Value Date Recorded Sex Assigned at Not on file 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 DermPath Lab Received: 06/12/2023 01:12 PM Pathologist: Teri Mcguire MD Specimen: Skin, left chest 11:32 AM CDT DERMATOPATHOLOGY LABORATORY Final Diagnosis Specimen A. SKIN, left chest: DERMAL SCAR RESIDUAL BASAL CELL CARCINOMA NOT IDENTIFIED (L90.5) 11:32 AM CDT DERMATOPATHOLOGY LABORATORY at 1132 CDT Clinical History BCC 11:32 AM CDT DERMATOPATHOLOGY LABORATORY Gross Description Specimen A: Received is one formalin filled container labeled with the patient's name and designated left chest.The specimen consists of an ellipse measuring 56a67g4 mm and is oriented with the suture/notch at the 3 o'clock position labeled on the requisition. The 12 to 6 o'clock margin is inked green. The 6 o'clock to 12 o'clock margin is inked black. The 12 o'clock tip is submitted in cassette 1. The 6 o'clock tip is submitted in cassette 2. The remainder of the ellipse is serially sectioned and submitted in cassettes 3-4. Jar 0. 3 11:32 AM T DERMATOPATHOLOGY LABORATORY Microscopic Description Specimen A. SKIN, left chest: There are fibroblasts and collagen bundles oriented parallel to the skin surface. There are elongated blood vessels, some of which are oriented perpendicular to the skin surface. No basal cell carcinoma is identified. 3 11:32 AM T DERMATOPATHOLOGY LABORATORY Disclaimer An external and internal positive and negative controls are appropriate for the histochemical, immunohistochemical and immunofluorescence stain(s) in this case (if any), except where stated explicitly. The performance characteristics of the stain(s) cited in this report were developed and its performance characteristic determined by the Dermatopathology Laboratory at [facility], directed by Dr. Martell Stallworth. These tests need not be, and therefore are not, approved by the [place] Food and Drug Administration. The tests are used for clinical purposes. Billing Codes Specimen Charges Stain Charges 84025 1 3 11:32 AM CDT DERMATOPATHOLOGY LABORATORY Embedded Images 11:32 AM T DERMATOPATHOLOGY LABORATORY Pathology/Cytolo gy TISSUE SPECIMEN FROM SKIN / Unknown 06/11/2023 3:01 PM CDT 06/12/2023 1:12 PM CDT us Ernestine Tobin MD LAB - PATHOLOGY/CYTOLOGY ORD ERABLES Final Result DERMATOPATHOLOGY LABORATORY [facility] - Department of Dermatology [address], [address] [phone] documented in this encounter Visit Diagnoses Not on filedocumented in this encounter
--- OUTSIDE RECORDS SUMMARY | 2025-01-12 07:25 | XMS_ITS | Continuity of Care Document ---
Author Organization [facility] Address [address] [place] [address] Phone Care Team Providers Care Senior Accounts Payable Specialist Name Role Phone Lane OD, Cyrus Unavailable Unavailable Procedures Procedure Date Contact Lens Hydrophilic, Spherical [facility] Contact Lens Check Contact Lens Hydrophilic, Spherical [facility] Contact Lens Check Contact Lens Check Eye Exam & Treatment Refraction Advance Directives Directive Yes / No Effective Date File Name No Information Encounters Encounter Description Practice Location Reason(s) For Visit Diagnoses Date Provider Providers Copied on Encounter [facility], [address] [place] [address] [address], [place], [place], [id number], tel:[phone] [facility] No Information [address] OD Cyrus. [address] , [address], [place], [place], [facility], [place]. tel:[phone] [facility], [address] [place] [address] [address], [place], [place], [id number], [place] tel:[phone] [facility] No Information - [address] Lane OD Cyrus. [address], [address], [place], [place], [facility], . tel:[phone] [facility], [address] [place] [address] [address], [place], [place], [id number], tel:[phone] [facility] No Information Dec-3 1-[address] Cyrus. [address] [facility] , [address], [place], [address], . tel:[phone] [facility] Eye [facility], [address], [place], [place], [id number], [place] tel:[phone] [facility] No Information Dec-1 2-[address] Cyrus. [address] [facility] , [address], [place], [address], [place]. tel:[phone] [facility], [address], [place], [place], [id number], tel:[phone] [facility] No Information Nov-0 5-[address] Cyrus[address] [facility] , [address], [place], [place], [facility], [place]. tel:[phone] Family History Family Member Type Diagnosis Age At Onset No Information Payers Payer name Insurance type Covered democrat ID Hanny valencia(s) [facility] [id number] Social History Type Description Quantity Date Captured Comments Sex Female Smoking Status No Information Chief Complaint And Reason For Visit No Information Reason For Referral Reason For Referral No Information History Of Present Illness Encounter Date Complaint History Of Prese nt Illness No Information Functional Status Date Functional Assessmen t No Information Instructions Date Instruction Additional Infor mation No Information Assessments Type Assessment Date No Information Patient Care Teams Name Effective Dates (start - stop) Status Members No Information
--- OUTSIDE RECORDS SUMMARY | 2025-01-12 07:25 | XMS_ITS | Clinical Summary ---
Author Organization [facility] Address [address] [address] Care Team Providers Care Sub Arc Operator Name Role Phone Unavailable Primary Care Provider Unavailabl e Source Comments [facility] [employer],non-owned Affiliates and Associated Physician Practices is amultiple site organization consisting of ambulatory clinics and hospital sitesin [place], [place], [place] and [place]. This disclosure is being madepursuant to the Care Everywhere program and may not contain all information available regarding this patient. 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 Gender Identity Not on file Sexual Orientation Not on file Plan of Treatment Health Maintenance Due Date Last Done Comments BONE DENSITY TESTING 1957 COLOGUARD (AGES 45-75) - COL ON CA SCREENING 1957 COLON MONITORING 1957 COLONOSCOPY - COLON CA SCREENING 1957 CT COLONOGRAPHY - COLON CA SCREENING 1957 Colorectal Cancer Screening 1957 FIT - COLON CA SCREENING 1957 FLEX SIG - COLON CA SCREENING 1957 LIPID TESTING 1957 MAMMOGRAM 1957 MEDICARE AWV 12 MONTHS 1957 HEPATITIS C SCREENING 09/19/1975 DTAP/TDAP/TD VACCINES (1 - Tdap) 1976 PNEUMOCOCCAL VACCINE 50+ (1 of 1 - PCV) 2007 ZOSTER VACCINE (1 of 2) 2007 COVID-19 VACCINE ( - 2023-2 5 season) 2024 DEPRESSION SCREENING 08/24/2024 INFLUENZA VACCINE (Season Ended) 2025 Respiratory Syncytial Virus (RSV) Vaccine Pt: or over 60 yrs (1 - 1-dose 75+ series) 2032 HEPATITIS B VACCINE Aged Out No longe r eligible based on patient's age to complete this topic HIB VACCINE Aged Out No longer eligi ble based on patient's age to complete this topic HPV VACCINE Aged Out No longer eligi ble based on patient's age to complete this topic MENINGOCOCCAL (Group B) VACC INE SHARED DECISION-MAKING Aged Out No longer eligibl e based on patient's age to complete this topic MENINGOCOCCAL GROUPS A/C/Y/W VACCINE Aged Out No longer eligible b ased on patient's age to complete this topic Insurance [facility] ESSENCE MEDICARE ADV PPO
--- OUTSIDE RECORDS SUMMARY | 2025-01-12 07:25 | XMS_ITS | Encounter Summary ---
Author Organization [facility] Address [address] [place] [address] Care Team Providers Care President Educational Institution Name Role Phone Unavailable Primary Care Provider Unavailabl e Encounter Details Date Type Department Care Team (Late st Contact Info) Description 12/14/2023 Lab Requisition [facility] - DermPath Lab [address] [facility] [address], [place] [address] Ernestine Tobin MD [address] 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 Gender Identity Not on file Sexual Orientation Not on file documented as of this encounter Plan of Treatment Not on file documented as of this encounter Procedures Procedure Name Priority Date/Time Associated Diagnosis Comments DERMATOPATHOLOGY Routine 12/14/2023 10:2 3 AM CDT documented in this encounter Results * DERMATOPATHOLOGY (12/14/2023 10:23 AM CDT) Case Report Dermatopathology Report Case: [id number] Authorizing Provider: Ernestine Tobin MD Collected: 12/14/2023 10:23 AM Ordering Location: [facility] Physician [facility] - Received: 12/15/2023 09:05 AM DermPath Lab Pathologist: Stacia Ozuna MD Specimen: Skin, nose 4 5:30 PM CDT DERMATOPATHOLOGY LABORATORY Final Diagnosis Specimen A. SKIN, nose: BASAL CELL CARCINOMA, NODULAR TYPE (C44.311) 4 5:30 PM CDT DERMATOPATHOLOGY LABORATORY at 1730 CDT Clinical History R/o BCC 5:30 PM CDT DERMATOPATHOLOGY LABORATORY Gross Description Specimen A: Received is one formalin filled container labeled with the patient's name and designated nose. The specimen consists of a shave biopsy measuring 5x4x1 mm. Jar 0. 4 5:30 PM CDT DERMATOPATHOLOGY LABORATORY Microscopic Description Specimen A. SKIN, nose: Within the dermis there are aggregates of basaloid cells with a high nuclear to cytoplasmic ratio and peripheral palisading. 4 5:30 PM CDT DERMATOPATHOLOGY LABORATORY Disclaimer An external and internal positive and negative controls are appropriate for the histochemical, immunohistochemical and immunofluorescence stain(s) in this case (if any), except where stated explicitly. The performance characteristics of the stain(s) cited in this report were developed and its performance characteristic determined by the Dermatopathology Laboratory at [facility], directed by Dr. Martell Stallworth. These tests need not be, and therefore are not, approved by the [place] Food and Drug Administration. The tests are used for clinical purposes. Billing Codes Specimen Charges Stain Charges 07987 1 4 5:30 PM CDT DERMATOPATHOLOGY LABORATORY Embedded Images 5:30 PM CDT DERMATOPATHOLOGY LABORATORY Pathology/Cytolo gy TISSUE SPECIMEN FROM SKIN / Unknown 12/14/2023 10:23 AM CDT 12/15/2023 9:05 AM CDT Ernestine Tobin MD LAB - PATHOLOGY/CYTOLOGY ORD ERABLES Final Result DERMATOPATHOLOGY LABORATORY [facility] - Department of Dermatology [address], [address] Floor [address] [phone] documented in this encounter Visit Diagnoses Not on filedocumented in this encounter
--- OUTSIDE RECORDS SUMMARY | 2025-01-12 07:26 | XMS_ITS | Clinical Summary ---
Author Organization [facility] Address [address] [place] [address] Care Team Providers Care Savings Teller Name Role Phone Pete Stallworth MD Primary Care Provider [phone] Allergies Active Allergy Reactions Criticality Noted Date [...] cardiomyopathy 03/06/2023 Coronary artery disease invo lving [place] coronary artery of [place] heart without angina pectoris 03/06/2023 Hypertension 03/06/2023 Claudication 07/25/2019 Overview (07/25/2019): Added automatically from request for surgery [id number] Immunizations Immunization Administration Dates Next Due Influenza, Unspecified 07/24/2019 Surgical History Surgery Date Site/Laterality Comments BREAST IMPLANT REMOVAL Medical History Medical History Date Comments Hypertension Psoriasis PONV (postoperative nausea and vomiting) Family History Medical History Relation Name Comments Anesthesia problems Neg Hx Social History Tobacco Use Types Packs/Day Years [...] on file Legal Sex Female 10:10 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 Gender Identity Not on file Sexual Orientation Not on file Obstetrics History Last Filed Vital Signs Vital Sign Reading Time Taken Comments Blood Pressure 108/80 03/11/2024 10:48 AM CDT Pulse 42 03/11/2024 10:48 AM CDT Temperature 36.6 C (97.9 F) 08/16/2019 7:46 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 Respiratory Rate 18 08/16/2019 7:46 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 Oxygen Saturation 97% 03/11/2024 10:48 AM CDT Inhaled Oxygen Concentration - - Weight 60.1 kg (132 lb 8 oz) 03/11/2024 10:48 AM CDT Height 162.6 cm (5' 4 ) 03/11/2024 10:48 AM CDT Body Mass Index 22.74 03/11/2024 10:48 AM CDT Plan of Treatment Health Maintenance Due Date Last Done Comments Breast Cancer Screening-Mammogram 1957 Colon Cancer Screening-Colonoscopy 1957 Depression Screening 1957 Fall Risk Assessment 1957 Hepatitis C Screening 1957 Osteoporosis Screening-Bone Density Scan 1957 DTaP/Tdap/Td Vaccine (1 - Tdap) 1968 Hepatitis B Screening 1975 Lung Cancer Screening 2007 Pneumococcal vaccine 65+ (1 of 1 - PCV) 2007 Zoster Vaccine (1 of 2) 2007 Well Visit 65+ 2022 Influenza Vaccine (Season Ended) 2025 07/24/2019, 06/09/2019, 06/08/2018, Additional history exists Medical Devices Implanted Type Area Cork Pressing Machine Operator Device Identifier Shelf Expiration Date Model / Serial / Lot Barafon [id number] Vascu-Guard 8x.8cm Peripheral Patch Vascular Bovine Pericardium - [id number] Implanted:Qty: 1 on 08/15/2019 by Charlie Cervantes MD at [facility] Other - see comments Left: Arm Barafon [id number] 01/12/2024 [id number] / / [id number] Description:Peripheral vascu lar Patch Insurance [facility] ADVANTAGE CHOICE PPO Member Subscriber Plan / Payer (Ef fective 2022-Present) Name:Betty Heck Relation to Subscriber:Self Name:Betty Heck Payer ID:[id number] ([facility]) Type:MEDICARE RISK OTHER Address: [address] [facility] HMO/PPO Address: [address] [address] [place] [address] [facility] PPO [facility] ESSENCE ADVANTAGE CHOICE PPO Member Subscriber Plan / Payer (Ef fective 2022-Present) Name:Betty Heck Relation to Subscriber:Self Name:Betty Heck Payer ID:[id number] ([facility]) Type:MEDICARE RISK OTHER Address: [address] [facility] HMO/PPO Address: [facility] [address] [place] [address] Advance Directives For more information, please contact: [phone] * Full Code (Latest Code Status on File) Date Activated Date Inactivated Comments 08/15/2019 2:26 PM 08/16/2019 2:21 PM Care Teams Savings Teller Relationship Specialty Start Date End Date Pete Stallworth MD [address] [address] PCP - General Family Medicine 07/18/19
== END 2025-01-12 07:20 | disposition home or self-care (01) ==
LOC: ANHIMG 07:22
PROVIDERS: PCP Family Medicine; Visit Provider Family Medicine
DX: Z12.31 Encounter for screening mammogram for malignant neoplasm of breast (principal)
CPT/HCPCS: 77063; 77067

== ENCOUNTER 2025-01-20 08:35 | Outpatient (CLI) | payer OTHER, SELFPAY ==
--- NOTE | ~2025-01-20 | US_ITS ---
Abdominal Sonogram: Real-time sonographic imaging of the abdomen was performed. Clinical History: Abdominal pain Findings: The liver appears normal with no evidence of mass lesion or bile duct dilatation. Main por shahriar vein demonstrates normal direction of flow. The spleen is normal in size without evidence of foca l lesion. The gallbladder is well distended, and appears normal with no evidence of gallstone or wal l thickening. The common bile duct measures 4 mm. The visualized pancreas, aorta, and IVC are unrema rkable. The right kidney measures 7.8 cm in length and the left kidney measures 9.1 cm. There is no hydronephrosis or renal calculus. Impression: Unremarkable abdominal ultrasound. 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 Impression: Unremarkable abdominal ultrasound.
== END 2025-01-20 08:36 | disposition home or self-care (01) ==
PROVIDERS: PCP Family Medicine; Visit Provider Family Medicine
DX: R10.9 Unspecified abdominal pain (principal)
CPT/HCPCS: 76700

== ENCOUNTER 2025-01-20 08:38 | Outpatient (CLI) | payer OTHER, SELFPAY ==
--- NOTE | ~2025-01-20 | XR_ITS ---
Clinical Indication: Dyspnea PA and lateral views of the chest: Comparison: 11/01/2022 Findings: The lungs are clear, without evidence of focal consolidation or pleural effusion. Cardiome diastinal silhouette is within normal limits. Bones and soft tissues are unremarkable. Impression: Normal chest. 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 Impression: Normal chest.
== END 2025-01-20 08:39 | disposition home or self-care (01) ==
PROVIDERS: PCP Family Medicine; Visit Provider Nurse Practitioner Family
DX: R06.00 Dyspnea, unspecified (principal)
CPT/HCPCS: 71046

== ENCOUNTER 2025-03-16 00:35 | Day surgery (SDC) | payer OTHER, SELFPAY ==
[2025-03-03 14:04] VITALS: BMI 22.6
--- OUTSIDE RECORDS SUMMARY | 2025-03-16 00:39 | XMS_ITS | Encounter Summary ---
Author Organization [facility] Address [address] [place] [address] Care Team Providers Care Occupational Therapy Teacher Name Role Phone Unavailable Primary Care Provider Unavailabl e Encounter Details Date Type Department Care Team (Late st Contact Info) Description 06/11/2023 Lab Requisition [facility] - Derm[facility] Lab [address] [facility], [place] [address] Ernestine Tobin MD [address] [facility] 3 [place] [address] Social History Tobacco Use Types Packs/Day Years Used Date Smoking Tobacco: Never Assessed Comments Unknown Sex and Gender Information Value Date Recorded Sex Assigned at Not on file 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 Gender Identity Not on file Sexual Orientation Not on file documented as of this encounter Plan of Treatment Not on file documented as of this encounter Procedures Procedure Name Priority Date/Time Associated Diagnosis Comments DERMATOPATHOLOGY Routine 06/11/2023 3:01 PM CDT documented in this encounter Results * DERMATOPATHOLOGY (06/11/2023 3:01 PM CDT) Case Report Dermatopathology Report Case: [id number] Authorizing Provider: Ernestine Tobin MD Collected: 06/11/2023 03:01 PM Ordering Location: [facility] DermPath Lab Received: 06/12/2023 01:12 PM Pathologist: [...] chest.The specimen consists of an ellipse measuring 35u28i1 mm and is oriented with the suture/notch [...] characteristic determined by the Dermatopathology Laboratory at [facility], directed by Dr. Martell Stallworth. These tests need not be, and therefore are not, approved by the [place] Food and Drug Administration. The tests are used for clinical purposes. Billing Codes Specimen Charges Stain Charges 55476 1 3 11:32 AM CDT DERMATOPATHOLOGY LABORATORY Embedded Images 11:32 AM T DERMATOPATHOLOGY LABORATORY Pathology/Cytolo gy TISSUE SPECIMEN FROM SKIN / Unknown 06/11/2023 3:01 PM CDT 06/12/2023 1:12 PM CDT us Ernestine Tobin MD LAB - PATHOLOGY/CYTOLOGY ORD ERABLES Final Result DERMATOPATHOLOGY LABORATORY [facility] - Department of Dermatology [address], [address] [phone] documented in this encounter Visit Diagnoses Not on filedocumented in this encounter
--- OUTSIDE RECORDS SUMMARY | 2025-03-16 00:39 | XMS_ITS | Clinical Summary ---
Author Organization [facility] Address [address] [place] [address] Care Team Providers Care Passenger Screener Name Role Phone Unavailable Primary Care Provider Unavailabl e Source Comments [facility],non-owned Affiliates and Associated Physician Practices is amultiple site organization consisting of ambulatory clinics and hospital sitesin [place], [place], [place] and [place]. This disclosure is being madepursuant to the Care Everywhere program and may not contain all information available regarding this patient. 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 ESSENCE MEDICARE ADV PPO
--- OUTSIDE RECORDS SUMMARY | 2025-03-16 00:39 | XMS_ITS | Referral Summary ---
Author Organization [facility] Address [address] [place] [address] Care Team Providers Care Plastic Molding Operator Name Role Phone Pete Stallworth MD Primary Care Provider [phone] Allergies Active Allergy Reactions Criticality Noted Date [...] a day as needed for pain 09/08/19 Active irbesartan (AVAPRO) 75 mg tabletIndications: hypertension Take 1 tablet (75 mg total) by mouth daily Active atorvastatin (LIPITOR) 40 mg tabletIndications: Dyslipidemia, goal LDL below 70 Take 1 tablet by mouth once daily 90 tablet 01/13/20 25 Active metoprolol XL (TOPROL-XL) 25 mg extended release tabletIndications: Takotsubo cardiomyopathy TAKE 1 TABLET BY MOUTH ONCE DAILY IN THE EVENING 90 tablet 01/13/20 25 Active Active Problems Problem Noted Date Diagnosed Date Takotsubo cardiomyopathy 03/06/2023 Coronary artery disease invo lving [place] coronary artery of [place] heart without angina pectoris 03/06/2023 Hypertension 03/06/2023 Claudication 07/25/2019 Overview (07/25/2019): Added automatically from request for surgery [id number] Immunizations Immunization Administration Dates Next Due Influenza, [...] on file Legal 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 Gender Identity Not on file Sexual Orientation Not on file Last Filed Vital Signs Vital Sign Reading Time Taken Comments Blood Pressure 108/80 03/11/2024 10:48 AM CDT Pulse 42 03/11/2024 10:48 AM CDT Temperature 36.6 C (97.9 F) 08/16/2019 7:46 AM JUNK DEALER Respiratory Rate 18 08/16/2019 7:46 AM JUNK DEALER Oxygen Saturation 97% 03/11/2024 10:48 AM CDT Inhaled Oxygen Concentration - - Weight 60.1 kg (132 lb 8 oz) 03/11/2024 10:48 AM CDT Height 162.6 cm (5' 4) 03/11/2024 10:48 AM CDT Body Mass Index 22.74 03/11/2024 10:48 AM CDT Plan of Treatment Not on file Medical Devices Implanted Type Area Accounting Teacher Device Identifier Shelf Expiration Date Model / Serial / Lot [employer] Hitesh [id number] Vascu-Guard 8x.8cm Peripheral Patch Vascular Bovine Pericardium - [id number] Implanted:Qty: 1 on 08/15/2019 by Charlie Cervantes MD at [facility] Other - see comments Left: Arm Bass StarGreetz Hitesh [id number] 01/12/2024 [id number] / / [id number] Description:Peripheral vascu lar Patch Insurance [facility] [employer] [place] [address] [facility] PPO [facility] ESSENCE ADVANTAGE CHOICE [place] [place] [address] Advance Directives For more information, please contact: [phone] * Full Code (Latest Code Status on File) Date Activated Date Inactivated Comments 08/15/2019 2:26 PM 08/16/2019 2:21 PM Care Teams Plastic Molding Operator Relationship Specialty Start Date End Date Pete Stallworth MD [address] [address] PCP - General Family Medicine 07/18/19
--- OUTSIDE RECORDS SUMMARY | 2025-03-16 00:39 | XMS_ITS | Continuity of Care Document ---
Author Organization [facility] Address [address] [place] [address] Phone Care Team Providers Care Entry Level Truck Driver Name Role Phone Lane OD, Cyrus Unavailable Unavailable Procedures Procedure Date Contact Lens Hydrophilic, Spherical [facility] Contact Lens Check Contact Lens Hydrophilic, Spherical [facility] Contact Lens Check Contact Lens Check Eye Exam & Treatment Refraction Advance Directives Directive Yes / No Effective Date File Name No Information Encounters Encounter Description Practice Location Reason(s) For Visit Diagnoses Date Provider Providers Copied on Encounter [facility], [address] [place] [address] [address], [place], [place], [id number], tel:[phone] [facility] No Information [address] OD Cyrus. [address] , [address], [place], [place], [facility], [place]. tel:[phone] [facility], [address] [place] [address] [address], [place], [place], [id number], [place] tel:[phone] [facility] No Information - [address] OD Cyrus. [address], [place], [place], [facility], . tel:[phone] [facility], [address] [place] [address] [address], [place], [place], [id number], tel:[phone] [facility] No Information Dec-3 1-[address] Cyrus[address] [facility] , [address], [place], [address], . tel:[phone] [facility], [address], [place], [place], [id number], [place] tel:[phone] [facility] No Information Dec-1 2-[address] Cyrus[address] [facility] , [address], [place], [address], [place]. tel:[phone] [facility], [address], [place], [place], [id number], tel:[phone] [facility] No Information Nov-0 5-[address] Cyrus[address] [facility] , [address], [place], [place], [facility], [place]. tel:[phone] Family History Family Member Type Diagnosis Age At Onset No Information Payers Payer name Insurance type Covered green party ID Hanny valencia(s) [facility] [id number] Social History Type Description Quantity Date Captured [...]
--- OUTSIDE RECORDS SUMMARY | 2025-03-16 00:39 | XMS_ITS | Encounter Summary ---
Author Organization [facility] Address [address] [facility] [place] [address] Care Team Providers Care Machine Hand Name Role Phone Unavailable Primary Care Provider Unavailabl e Encounter Details Date Type Department Care Team (Late st Contact Info) Description 12/14/2023 Lab Requisition [facility] - DermPath Lab [address] 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 Gender Identity Not on file Sexual Orientation Not on file documented as of this encounter Plan of Treatment Not on file documented as of this encounter Procedures Procedure Name Priority Date/Time Associated Diagnosis Comments DERMATOPATHOLOGY Routine 12/14/2023 10:2 3 AM CDT documented in this encounter Results * DERMATOPATHOLOGY (12/14/2023 10:23 AM CDT) Case Report Dermatopathology Report Case: [id number] Authorizing Provider: Ernestine Tobin MD Collected: 12/14/2023 10:23 AM Ordering Location: [facility] - Received: 12/15/2023 09:05 AM DermPath Lab [...] characteristic determined by the Dermatopathology Laboratory at [facility], directed by Dr. Martell Stallworth. These tests need not be, and therefore are not, approved by the [place] Food and Drug Administration. The tests are used for clinical purposes. Billing Codes Specimen Charges Stain Charges 37744 1 4 5:30 PM CDT DERMATOPATHOLOGY LABORATORY Embedded Images 5:30 PM CDT DERMATOPATHOLOGY LABORATORY Pathology/Cytolo gy TISSUE SPECIMEN FROM SKIN / Unknown 12/14/2023 10:23 AM CDT 12/15/2023 9:05 AM CDT Ernestine Tobin MD LAB - PATHOLOGY/CYTOLOGY ORD ERABLES Final Result DERMATOPATHOLOGY LABORATORY [facility] - Department of Dermatology [address], [address] [phone] documented in this encounter Visit Diagnoses Not on filedocumented in this encounter
--- OUTSIDE RECORDS SUMMARY | 2025-03-16 00:39 | XMS_ITS | Clinical Summary ---
Author Organization [facility] Address [address] [place] [address] Care Team Providers Care Heel Turner Name Role Phone Pete Stallworth MD Primary Care Provider [phone] Allergies Active Allergy Reactions Criticality Noted Date [...] cardiomyopathy 03/06/2023 Coronary artery disease invo lving [place] coronary artery of [place] heart without angina pectoris 03/06/2023 Hypertension 03/06/2023 Claudication 07/25/2019 Overview (07/25/2019): Added automatically from request for surgery [id number] Immunizations Immunization Administration Dates Next Due Influenza, [...] on file Legal Sex Female 10:10 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 Gender Identity Not on file Sexual Orientation Not on file Obstetrics History Last Filed Vital Signs Vital Sign Reading Time Taken Comments Blood Pressure 108/80 03/11/2024 10:48 AM CDT Pulse 42 03/11/2024 10:48 AM CDT Temperature 36.6 C (97.9 F) 08/16/2019 7:46 AM WATER 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 Respiratory Rate 18 08/16/2019 7:46 AM WATER 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 Oxygen Saturation 97% 03/11/2024 10:48 AM CDT [...] 2007 Well Visit 65+ 2022 Influenza Vaccine (#1) 2025 9, 06/09/2019, 06/08/2018, Additional history exists Medical Devices Implanted Type Area Dross Skimmer Device Identifier Shelf Expiration Date Model / Serial / Lot [employer] [id number] Vascu-Guard 8x.8cm Peripheral Patch Vascular Bovine Pericardium - [id number] Implanted:Qty: 1 on 08/15/2019 by Charlie Cervantes MD at [facility] Other - see comments Left: Arm [employer] [id number] 01/12/2024 [id number] / / [id number] Description:Peripheral vascu lar Patch Insurance [employer] PPO Member Subscriber Plan / Payer (Ef fective 2022-Present) Name:Betty Heck Relation to Subscriber:Self Name:Betty Heck Payer ID:[id number] (NAIC) Type:MEDICARE RISK OTHER Address: [address] [facility] PPO [facility] [employer] PPO Member Subscriber Plan / Payer (Ef fective 2022-Present) Name:Betty Heck Relation to Subscriber:Self Name:Betty Heck Payer ID:[id number] (NAIC) Type:MEDICARE RISK OTHER Address: [address] Advance Directives For more information, please contact: [phone] * Full Code (Latest Code Status on File) Date Activated Date Inactivated Comments 08/15/2019 2:26 PM 08/16/2019 2:21 PM Care Teams Heel Turner Relationship Specialty Start Date End Date Pete Stallworth MD [address] [address] PCP - General Family Medicine 07/18/19
--- OUTSIDE RECORDS SUMMARY | 2025-03-16 00:39 | XMS_ITS | Encounter Summary ---
Author Organization [facility] Address [address] [facility] [place] [address] Care Team Providers Care Human Resources Administrator Name Role Phone Unavailable Primary Care Provider Unavailabl e Encounter Details Date Type Department Care Team (Late st Contact Info) Description 06/02/2023 Lab Requisition [facility] - Derm[facility] Lab [address] [facility] [place] [address] Ernestine Tobin MD [address] [facility] [address] [place] [address] Social History Tobacco Use Types Packs/Day Years Used Date Smoking Tobacco: Never Assessed Comments Unknown Sex and Gender Information Value Date Recorded Sex Assigned at Not on file 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 Jar 0. 3:27 PM [facility] Microscopic Description Specimen A. SKIN, [...] characteristic determined by the Dermatopathology Laboratory at [facility], directed by Dr. Martell Stallworth. These tests need not be, and therefore are not, approved by the [place] Food and Drug Administration. The tests are used for clinical purposes. Billing Codes Specimen Charges Stain Charges 30105 1 3:27 PM CDT DERMATOPATHOLOGY LABORATORY Embedded Images 3:27 PM T DERMATOPATHOLOGY LABORATORY Pathology/Cytolo gy TISSUE SPECIMEN FROM SKIN / Unknown 06/02/2023 8:24 AM CDT 06/02/2023 12:54 PM CDT Ernestine Tobin MD LAB - PATHOLOGY/CYTOLOGY ORD ERABLES Final Result DERMATOPATHOLOGY LABORATORY [facility] - Department of Dermatology [facility] [address] [place] [address], [address] [phone] documented in this encounter Visit Diagnoses Not on filedocumented in this encounter
[2025-03-16 07:50] VITALS: BP 147/74; PULSE 80; RESP 18; TEMP 36.3; O2SAT 97; BMI 20.6
[2025-03-16] MEDS: LACTATED RINGERS 1,000 ML 150 ML IV CONT (08:02)
[2025-03-16] MEDS: SIMETHICONE ORAL SUSPENSION 20 MG/0.3 ML 30 ML BOTTLE 1.8 ML PO (08:02)
--- NOTE | 2025-03-16 08:26 | WPDANESEPPF ---
Anes - Initial Pre Proc Eval Procedure: Operation Date: 03/16/25 09:00 Proposed Procedures p Esophagogastroduodenoscopy - Efraín Cardoso MD Date/Time: 03/16/25 08:26 Surgeon: Efraín Cardoso MD Pre Op Diagnosis: Abdominal tenderness, unspecified site Patient Data Age: 69 Gender: F Height: 1.63 m Weight: 54.6 kg Last Vital Signs Temp 97.4 F L 03/16/25 07:50 Pulse 80 03/16/25 07:50 Resp 18 03/16/25 07:50 BP 147/74 H 03/16/25 07:50 Pulse Ox 97 03/16/25 07:50 O2 Del Method Room Air 03/16/25 07:50 Allergies Allergy/AdvReac Type Severity Reaction Status Date / Time ciprofloxacin Allergy Unknown Joint pain Verified 03/16/25 07:47 Penicillins Allergy Unknown Rash Verified 03/16/25 07:47 Home Medications ?Medication ?Instructions ?Recorded ?Confirmed ?Type esomeprazole magnesium 20 mg 20 mg PO DAILY 04/05/20 03/03/25 History capsule,delayed release (Nexium 24HR) aspirin 81 mg chewable tablet 81 mg PO DAILY 11/01/22 03/03/25 History atorvastatin 40 mg tablet 40 mg PO DAILY #30 tabs 11/03/22 03/03/25 Rx metoprolol succinate 25 mg 25 mg PO QAM 30 days #30 tabs 11/03/22 03/03/25 Rx tablet,extended release 24 hr (Toprol XL) triamcinolone acetonide 55 mcg 1 spray intranasal . b.i.d. 05/14/23 03/03/25 History nasal spray aerosol (Nasacort Allergy) amitriptyline 10 mg tablet 20 mg (2 x 10 mg) PO . q.h.s. #180 04/27/24 03/03/25 Rx tabs ibuprofen 800 mg tablet 800 mg PO TID PRN pain #90 tabs 11/14/24 03/03/25 Rx ferrous sulfate 325 mg (65 mg 325 mg PO . twice weekly 01/11/25 03/03/25 History iron) tablet albuterol sulfate 90 mcg/actuation 2 puff inhalation Q4H PRN 01/17/25 03/16/25 Rx aerosol inhaler (ProAir HFA) shortness of breath or wheezing #8.5 grams tiotropium 2.5 mcg-olodaterol 2.5 2 puff inhalation Q24H #4 grams 01/18/25 03/03/25 Rx mcg/actuation mist for inhalation (Stiolto Respimat) zolpidem 10 mg tablet (Ambien) 10 mg PO . q.h.s. PRN insomnia #30 01/27/25 03/03/25 Rx tabs irbesartan 150 mg tablet 75 mg (1/2 x 150 mg) PO DAILY #45 01/31/25 03/03/25 Rx tabs mupirocin 2 % topical ointment 1 applic topical BID #15 grams 02/15/25 03/03/25 Rx (Centany) Patient hx anesthesia problems: none Family hx anesthesia problems: none Results Review: All pre-operative results and documents have been reviewed as part of the pre-operative evaluation. [facility] Past Medical History Medical History Ingrown toenail Abdominal pain in female At low risk for fall Welcome to Medicare preventive visit At moderate risk for fall (~04/2023) patient was pulled over by dog Atherosclerotic heart disease of [place] coronary artery without angina pectoris (05/04/23) 50% LAD, 30-40% RCA, 10-20% obtuse marginal on cardiac catheterization 11/03/2022. Left elbow contusion Hypertension Non-ST elevation [place] (NSTEMI) (11/01/22) Cardiac catheterization with 50% lesion of the LAD, 10-20% lesion of the optics marginal and 30-40% lesion in the RCA with signs of Takotsubo cardiomyopathy on 11/03/2022. Left kidney mass MRI of the kidneys on 09/25/2022 revealed bilateral renal cyst with 2 complex, proteinaceous /hemorrhagic cyst in left kidney, 2 cm and 9 mm , nonenhancing. No further evaluation needed. Left groin pain Strain of left groin Positive colorectal cancer screening using Cologuard test Peripheral vascular disease (~05/11/22) extensive calcification of the aorta and iliac arteries on x-ray of the lumbar spine and hips 04/30/2022. Arterial Doppler study of the lower extremities revealed decreased TBI bilaterally worse on the left with value of 0.55 on the right and 0.29 on the left. Kyphosis Urticaria (~01/2022) Chronic hip pain, bilateral X-rays of the hips on 04/30/2022 were unremarkable. Chronic low back pain with bilateral sciatica x-ray of the lumbar spine on 04/30/2022 reveals levoscoliosis but otherwise unremarkable. Severe itching Rash Grieving daughter July, BMI 23.0-23.9, adult Mixed hyperlipidemia total cholesterol 243, HDL 59, triglycerides 74, LDL 154 on 10/25/2021. Cholesterol 242, triglycerides 93, HDL 69, LDL 153 on 10/02/2022. total cholesterol 166, triglycerides 74, HDL 61, LDL 89 with ratio 2.7 on 03/31/2023. Cholesterol 139, triglycerides 47, HDL 57, LDL 69 with ratio 2.4 on 10/15/2023. Cholesterol 151, triglycerides 89, HDL 67, LDL 67 with ratio 2.3 on 04/21/2024. Iron deficiency anemia, unspecified level low at 22 on 11/09/2015. Iron normal at 89 with 24% saturation with ferritin low at 12 on 10/25/2021. Hemoglobin 12.7, iron 118, 31% saturation, ferritin 13 on 10/02/2022. Hemoglobin 11.9, hematocrit 37.5, iron 56 with 14% saturation and ferritin 10 on 03/31/2023. Iron low at 41 with 11% saturation and ferritin 15 with hemoglobin 12.6 on 10/15/2023. Iron elevated at 173 with 49% saturation and ferritin 20 with hemoglobin 13.4 on 04/21/2024. BMI 21.0-21.9, adult Colon cancer screening (05/08/22) Cologuard screening on 05/08/2022 was positive. The patient needs colonoscopy 05/14/2022. colonoscopy on 06/26/2022 was negative. Breast cancer screening by mammogram normal mammogram 05/29/2021. Normal mammogram 07/31/2022. Normal 11/09/2023. Encounter for screening for other viral diseases Encounter for wellness examination in adult Emphysema/COPD moderate COPD with no improvement with bronchodilator on PFT on 05/31/2021 Encounter for screening for other viral diseases Acute bronchitis Exposure to COVID-19 virus Atypical chest pain Exercise stress test on 05/31/2021 negative for ischemia with poor exercise tolerance Medial epicondylitis, left elbow Cough present for greater than 3 weeks Acute non-recurrent maxillary sinusitis Left axillary artery thrombus Tobacco use disorder, continuous quit smoking 03/24/2020 Family History Family History Mother Patient's mother is , Onset Age: 76 Father Patient's father is , Onset Age: 71 Grandparent Cerebrovascular accident, Onset Age: 74 Hypertension Acute myocardial infarction Sibling Acute myocardial infarction Social History Social History Smoking packs per day: 1 Smoking cigarettes per day: 20.0 Years smoked: 40 Smoking pack-years: 40.00 Smoking status: Former smoker Tobacco type: cigarettes Smoking end date: 05/24/20 Alcohol intake: never Drinks per week: 1 Substance use: never Substance use type: does not use Lack of Transportation: No Lack of Food: Never True Current Housing: I Have Housing Concerned About Future Housing: No Difficulty Paying Gas/Electric Bills: No Difficulty Paying for Meds: No Currently Unemployed: No Education: Trade/Vocational Certificate Difficulty w/ Childcare or Family Care: No Living arrangements: with family Spiritual care concerns: No Anes - Eval Final PreProcedure Day of Procedure 03/16/25 08:26 Patient weight: normal Lungs: normal air movement Airway: Mallampati scale class II Neurological: alert and oriented Last oral intake: >/= 8 hours ASA classification: III Emergent: no Anesthetic plan: proceed Anesthesia type and monitoring: general GIVS and standard monitoring Results Review: All pre-operative results and documents have been reviewed as part of the pre-operative evaluation. Hx HTN, hyperlipidemia, takotsubo CM 2022 w improvement to nml LVEF, exsmoker, quit 2019. Informed Consent: The patient's anesthetic plan and its attendant risks and benefits were discussed with the patient/family/POA. Questions were solicited and answers provided to the satisfaction of the patient/family/POA.
--- NOTE | 2025-03-16 08:50 | P.HP_ITS ---
H&P: HPI History of Present Illness Date/Time: 03/16/25 08:50 Chief Complaint: Epigastric pain/dyspepsia Narrative: the patient is referred for EGD for the evaluation of chronic, recurrent epigastric discomfort, postprandial bloating and pain. Never had EGD. Review of Systems Review of Systems: All systems reviewed & are unremarkable except as noted in HPI and below PMFSH Past Medical History Medical History Ingrown toenail Abdominal pain in female At low risk for fall Welcome to Medicare preventive visit At moderate risk for fall (~04/2023) patient was pulled over by dog Atherosclerotic heart disease of [place] coronary artery without angina pectoris (05/04/23) 50% LAD, 30-40% RCA, 10-20% obtuse marginal on cardiac catheterization 11/03/2022. Left elbow contusion Hypertension Non-ST elevation [place] (NSTEMI) (11/01/22) Cardiac catheterization with 50% lesion of the LAD, 10-20% lesion of the optics marginal and 30-40% lesion in the RCA with signs of Takotsubo cardi omyopathy on 11/03/2022. Left kidney mass MRI of the kidneys on 09/25/2022 revealed bilateral renal cyst with 2 complex, proteinaceous /hemorrhagic cyst in left kidney, 2 cm and 9 mm , nonenhancing. No further evaluation needed. Left groin pain Strain of left groin Positive colorectal cancer screening using Cologuard test Peripheral vascular disease (~05/11/22) extensive calcification of the aorta and iliac arteries on x-ray of the lumbar spine and hips 04/30/2022. Arterial Doppler study of the lower extremities revealed decreased TBI bilaterally worse on the left with value of 0.55 on the right and 0.29 on the left. Kyphosis Urticaria (~01/2022) Chronic hip pain, bilateral X-rays of the hips on 04/30/2022 were unremarkable. Chronic low back pain with bilateral sciatica x-ray of the lumbar spine on 04/30/2022 reveals levoscoliosis but otherwise unremarkable. Severe itching Rash Grieving daughter July, BMI 23.0-23.9, adult Mixed hyperlipidemia total cholesterol 243, HDL 59, triglycerides 74, LDL 154 on 10/25/2021. Cholesterol 242, triglycerides 93, HDL 69, LDL 153 on 10/02/2022. total cholesterol 166, triglycerides 74, HDL 61, LDL 89 with ratio 2.7 on 03/31/20 23. Cholesterol 139, triglycerides 47, HDL 57, LDL 69 with ratio 2.4 on 10/15/2023. Cholesterol 151, triglycerides 89, HDL 67, LDL 67 with ratio 2.3 on 04/21/2024. Iron deficiency anemia, unspecified level low at 22 on 11/09/2015. Iron normal at 89 with 24% saturation with ferritin low at 12 on 10/25/2021. Hemoglobin 12.7, iron 118, 31% saturation, ferritin 13 on 10/02/2022. Hemoglobin 11.9, hematocrit 37.5, iron 56 with 14% saturation and ferritin 10 on 03/31/2023. Iron low at 41 with 11% saturation and ferritin 15 with hemoglobin 12.6 on 10/15/2023. Iron elevated at 173 with 49% saturation and ferritin 20 with hemoglobin 13.4 on 04/21/2024. BMI 21.0-21.9, adult Colon cancer screening (05/08/22) Cologuard screening on 05/08/2022 was positive. The patient needs colonoscopy 05/14/2022. colonoscopy on 06/26/2022 was negative. Breast cancer screening by mammogram normal mammogram 05/29/2021. Normal mammogram 07/31/2022. Normal 11/09/2023. Encounter for screening for other viral diseases Encounter for wellness examination in adult Emphysema/COPD moderate COPD with no improvement with bronchodilator on PFT on 05/31/2021 Encounter for screening for other viral diseases Acute bronchitis Exposure to COVID-19 virus Atypical chest pain Exercise stress test on 05/31/2021 negative for ischemia with poor exercise tolerance Medial epicondylitis, left elbow Cough present for greater than 3 weeks Acute non-recurrent maxillary sinusitis Left axillary artery thrombus Tobacco use disorder, continuous quit smoking 03/24/2020 Family History Family History Mother Patient's mother is , Onset Age: 76 Father Patient's father is , Onset Age: 71 Grandparent Cerebrovascular accident, Onset Age: 74 Hypertension Acute myocardial infarction Sibling Acute myocardial infarction Social History Social History Smoking packs per day: 1 Smoking cigarettes per day: 20.0 Years smoked: 40 Smoking pack-years: 40.00 Smoking status: Former smoker Tobacco type: cigarettes Smoking end date: 05/24/20 Alcohol intake: never Drinks per week: 1 Substance use: never Substance use type: does not use Lack of Transportation: No Lack of Food: Never True Current Housing: I Have Housing Concerned About Future Housing: No Difficulty Paying Gas/Electric Bills: No Difficulty Paying for Meds: No Currently Unemployed: No Education: Trade/Vocational Certificate Difficulty w/ Childcare or Family Care: No Living arrangements: with family Spiritual care concerns: No Meds Home Medications and Allergies Home Medications ?Medication ?Instructions ?Recorded ?Confirmed ?Type esomeprazole magnesium 20 mg 20 mg PO DAILY 04/05/20 03/03/25 History capsule,delayed release (Nexium 24HR) aspirin 81 mg chewable tablet 81 mg PO DAILY 11/01/22 03/03/25 History atorvastatin 40 mg tablet 40 mg PO DAILY #30 tabs 11/03/22 03/03/25 Rx metoprolol succinate 25 mg 25 mg PO QAM 30 days #30 tabs 11/03/22 03/03/25 Rx tablet,extended release 24 hr (Toprol XL) triamcinolone acetonide 55 mcg 1 spray intranasal . b.i.d. 05/14/23 03/03/25 History nasal spray aerosol (Nasacort Allergy) amitriptyline 10 mg tablet 20 mg (2 x 10 mg) PO . q.h.s. #180 04/27/24 03/03/25 Rx tabs ibuprofen 800 mg tablet 800 mg PO TID PRN pain #90 tabs 11/14/24 03/03/25 Rx ferrous sulfate 325 mg (65 mg 325 mg PO . twice weekly 01/11/25 03/03/25 History iron) tablet albuterol sulfate 90 mcg/actuation 2 puff inhalation Q4H PRN 01/17/25 03/16/25 Rx aerosol inhaler (ProAir HFA) shortness of breath or wheezing #8.5 grams tiotropium 2.5 mcg-olodaterol 2.5 2 puff inhalation Q24H #4 grams 01/18/25 03/03/25 Rx mcg/actuation mist for inhalation (Stiolto Respimat) zolpidem 10 mg tablet (Ambien) 10 mg PO . q.h.s. PRN insomnia #30 01/27/25 03/03/25 Rx tabs irbesartan 150 mg tablet 75 mg (1/2 x 150 mg) PO DAILY #45 01/31/25 03/03/25 Rx tabs mupirocin 2 % topical ointment 1 applic topical BID #15 grams 02/15/25 03/03/25 Rx (Centany) Allergies Allergy/AdvReac Type Severity Reaction Status Date / Time ciprofloxacin Allergy Unknown Joint pain Verified 03/16/25 07:47 Penicillins Allergy Unknown Rash Verified 03/16/25 07:47 Vital Signs Vital Signs - 24 hr 03/16/25 07:50 Temperature 97.4 F L Pulse Rate 80 Respiratory Rate 18 Blood Pressure 147/74 H Pulse Oximetry 97 Oxygen Delivery Room Air Exam Const: General: cooperative and healthy appearing Resp: Effort & Inspection: normal respiratory effort and able to speak in complete sentences Auscultation: clear to auscultation bilaterally Cardio: Rate: regular rate Rhythm: regular rhythm GI: Inspection: normal to inspection GI Palp: No No hepatosplenomegaly present Auscultation: normal bowel sounds Rectal Exam: deferred Skin: General skin exam: normal color Psych: Appearance: grossly normal Mental Status: mental status grossly normal Assessment and Plan Assessment and plan (1) Abdominal pain in female: Code(s): R10.9 - Unspecified abdominal pain Status: Acute Assessment and Plan: The patient is deemed a good candidate for the procedure. Consent signed. Will proceed.
--- NOTE | 2025-03-16 09:01 | S_PTH ---
PATIENT: Betty Robertson LOC: [facility] #:[id number] AGE/SX: 69/F ROOM: RE03/16/[address]: Efraín Cardoso MD : 1955 BED: DIS: 03/16/2025 SPEC #: [id number] RECD: 03/16/25 09:44 STATUS: ZAIRA REChao #: [id number] GRACIELA: 03/16/25 09:[address]: Efraín Cardoso DEPT: [facility] Surgical RECD BY: Maria Stiles ENTERED: 03/16/25 09:44 SP TYPE: Surgical OTHR DR: Pete Stallworth MD Tissues: A - Gastric Biopsy B - Gastric Biopsy Procedures: Hematoxylin and Eosin Stain Gross and Microscopic Level 4
[2025-03-16 09:05] VITALS: BP 122/72; PULSE 77; RESP 26; O2SAT 97
[2025-03-16 09:15] VITALS: BP 118/70; PULSE 82; RESP 18; O2SAT 98
[2025-03-16 09:25] VITALS: BP 139/84; PULSE 81; RESP 17; O2SAT 100
== END 2025-03-16 09:40 | disposition home or self-care (01) ==
PROVIDERS: PCP Family Medicine; Visit Provider Internal Medicine Gastroenterology
PROC: 0DJ08ZZ Inspection of Upper Intestinal Tract, Via Natural or Artificial Opening Endoscopic (ICD-10-PCS; CPT 43239; principal; 2025-03-16 09:00)
DX: K44.9 Diaphragmatic hernia without obstruction or gangrene (principal); K29.30 Chronic superficial gastritis without bleeding; I10 Essential (primary) hypertension; E78.2 Mixed hyperlipidemia; D50.9 Iron deficiency anemia, unspecified; I25.10 Atherosclerotic heart disease of native coronary artery without angina pectoris; J43.9 Emphysema, unspecified; I73.9 Peripheral vascular disease, unspecified; M40.209 Unspecified kyphosis, site unspecified; G89.29 Other chronic pain; M25.552 Pain in left hip; M25.551 Pain in right hip; Z79.82 Long term (current) use of aspirin; Z79.1 Long term (current) use of non-steroidal anti-inflammatories (NSAID); Z79.51 Long term (current) use of inhaled steroids; Z87.891 Personal history of nicotine dependence; Z86.718 Personal history of other venous thrombosis and embolism; Z82.49 Family history of ischemic heart disease and other diseases of the circulatory system
CPT/HCPCS: 43239; 88305; J2003; J2704; J7120